=== PATIENT | male | born 1945 | race Caucasian/White ===

== ENCOUNTER 2019-12-16 09:32 | Observation (INO) | payer MEDICARE, OTHER, SELFPAY ==
[2019-12-16] VITALS (13 sets, daily range): BP systolic 118–187; BP diastolic 63–80; PULSE 64–87; RESP 15–18; TEMP 36.1–37.1; O2SAT 94–100; BMI 27.5; BMI 29.2; BMI 29.1
--- NOTE | 2019-12-16 09:35 | CT_ITS ---
We are attempting to reach an attending provider to discuss findings. An addendum with communication details will be sent when the communication is complete. STUDY: CT BRAIN WITHOUT CONTRAST REASON FOR EXAM: Male, 74 years old. STROKE RADIATION DOSAGE (If Supplied By Facility): CTDIvol = ( 44.99 ) mGy, DLP = ( 829.85 ) mGycm TECHNIQUE: Transaxial CT imaging of the brain was performed without administration of intravenous contrast material. Individualized dose optimization techniques were used for this CT. COMPARISON: No relevant priors. FINDINGS: Normal soft tissue structures. Normal calvarium. Normal size ventricles and extra-axial spaces for the patient''s age. There are areas of decreased attenuation within the white matter tracts of the supratentorial brain, consistent with microvascular disease changes. Normal basal ganglia and thalami. Normal brainstem. Normal cerebellum. There is no intracranial hemorrhage. There are no findings of an acute ischemic infarction. Normal visualized paranasal sinuses. CT/Brain/Head without Contrast IMPRESSION: Chronic involutional changes of the brain. Electronically Signed: Cheri Abbasi, at 9:51 EDT Tel , Service support ,
--- NOTE | 2019-12-16 09:35 | EKG12_ITS ---
Test Reason : Blood Pressure : / mmHG Vent. Rate : 074 BPM Atrial Rate : 074 BPM P-R Int : 196 ms QRS Dur : 118 ms QT Int : 418 ms P-R-T Axes : 058 -51 070 degrees QTc Int : 463 ms Sinus rhythm with marked sinus arrhythmia Left anterior fascicular block Left ventricular hypertrophy with QRS widening Nonspecific ST and T wave abnormality Abnormal ECG Confirmed by NAOMI RESENDIZ ([id number]), supervising editor trailer NAN POWELL ([id number]) on 12/21/2019 9:38:00 AM Referred By: KASSIE Confirmed By:NAOMI RESENDIZ
--- NOTE | 2019-12-16 09:36 | CT_ITS ---
We are attempting to reach an attending provider to discuss findings. An addendum with communication details will be sent when the communication is complete. STUDY: CTA HEAD AND NECK WITH CONTRAST REASON FOR EXAM: Male, 74 years old. CVA RADIATION DOSAGE (If Supplied By Facility): CTDIvol = ( 19.82 ) mGy, DLP = ( 765.25 ) mGycm TECHNIQUE: CT angiography was performed with a multi-detector CT scanner. Data acquisition was obtained from the skull base through the vertex following intravenous administration of IV [id number] 100ML. MIP images were reconstructed from the axial data set. Post-processing of the angiographic images was performed, with multiplanar reformation and 3D reconstruction. Individualized dose optimization techniques were used for this CT. COMPARISON: No relevant priors. FINDINGS: Normal bilateral petrous carotid arteries. Normal right cavernous carotid artery with a normal supraclinoid bifurcation. Normal left cavernous carotid artery with a normal supraclinoid bifurcation. Normal right A1 segments of the anterior cerebral artery. Normal left A1 segments of the anterior cerebral artery. Normal intact anterior communicating artery (ACOM). Normal bilateral A2 segments of the anterior cerebral arteries. Normal right M1 and M2 segments of the middle cerebral arteries, with a normal M1 bifurcation. Normal left M1 and M2 segments of the middle cerebral arteries, with a normal M1 bifurcation. There is non-visualization of the right posterior communicating artery (PCOM). There is non-visualization of the left posterior communicating artery (PCOM). Normal bilateral vertebral arteries. Normal basilar artery with a normal basilar bifurcation. The visualized bilateral superior cerebellar (SCA) arteries are normal. Normal bilateral P1, P2 and visualized P3 segments of the posterior cerebral arteries. There is no demonstrated aneurysm of the [place] of [place]. There is no demonstrated abnormality of the visualized brain. AORTIC ARCH: Normal visualized aortic arch. Normal origins of the brachiocephalic, left common carotid, and left subclavian arteries. RIGHT CAROTID ARTERIES: Normal right common carotid artery (CCA). There is mild atherosclerotic plaque formation with minimal narrowing of the right carotid bulb. Normal origin of the right internal carotid (ICA) artery without a hemodynamically significant stenosis. Normal visualized cervical portion of the right internal carotid artery. Normal origin of the right external carotid artery (ECA). LEFT CAROTID ARTERIES: Normal left common carotid artery (CCA). There is mild atherosclerotic plaque formation with minimal narrowing of the left carotid bulb. Normal origin of the left internal carotid (ICA) artery without a hemodynamically significant stenosis. Normal visualized cervical portion of the left internal carotid artery. Normal origin of the left external carotid artery (ECA). VERTEBRAL ARTERIES: Normal bilateral vertebral arteries. CT/CTA Head AND Neck W/ Contrast IMPRESSION: No significant stenosis of the cervical arteries. There is no intracranial large vessel occlusion. Electronically Signed: Cheri Abbasi, at 10:19 EDT Tel , Service support ,
[2019-12-16 10:11] LABS: Absolute Lymphocyte Count 0.67 X10^3/uL (0.83-4.51); Absolute Neutrophil Count 3.5 X10^3/uL (2.0-7.7); Basophil# 0.03 X10^3/uL; Basophil% 0.6 % (0-1); Eosinophil# 0.17 X10^3/uL; Eosinophils% 3.5 % (0-5); Hematocrit 43.8 % (40-54); Hemoglobin 14.7 g/dL (13.0-16.5); Lymphocyte # 0.67 X10^3/ul (4.0); Lymphocyte % 13.9 % (19-41); Mean Corp Hgb Conc 33.6 g/dL (32-36); Mean Corpuscular Hgb 31.1 pg (27.0-32.0); Mean Corpuscular Volume 92.8 fL (80-94); Mean Platelet Vol. 11.1 fl (6.2-12.0); Monocyte# 0.39 X10^3/uL; Monocyte% 8.1 % (0-10); NRBC Flagged by Analyzer 0 % (0-5); Neutrophil # 3.53 X10^3/uL (2.7-7.7); Neutrophil % 73.5 % (47-70); Platelet Count 137 K/mm3 (150-450); RBC Distribution Width CV 13.2 % (11.6-14.6); RBC Distribution Width SD 44.9 fl (35.1-43.9); Red Blood Count 4.72 M/mm3 (4.6-6.2); White Blood Count 4.8 K/mm3 (4.4-11.0)
--- NOTE | 2019-12-16 10:11 | NURSING ---
FACESHEET FAXED TO [facility]
[2019-12-16] MEDS: Aspirin 81 MG TAB.CHEW 324 MG PO (10:16)
[2019-12-16 10:22] LABS: Prothrombin Time (Protime)PT. 13.1 SECONDS (11.7-14.9)
[2019-12-16 10:23] LABS: Partial Thromboplast Time 23.5 Seconds (24.1-36.2)
--- NOTE | 2019-12-16 10:26 | NURSING ---
DR HADLEY FOR DR FERNANDO
--- NOTE | 2019-12-16 10:33 | ED.VISSUMM ---
- ER Visit Summary Date of Service: 12/16/19 Chief Complaint: Stroke History of Present Illness: The patient is a 74 M who presents with stroke symptoms that began this morning when he woke up. Patient last known well was 8 PM last night. This was approximately 13-1/2 hours prior to arrival. Patient states he went to bed and was feeling normal last night. Patient states he woke up in the middle the night and was not feeling right. Patient woke up this morning and was having trouble talking and said his right side was weak. Patient states he was having trouble standing. Patient denies any chest pain or shortness of breath. Patient denies any nausea or vomiting. Patient denies any headaches. Patient denies any visual changes. Physical Examination: Vital signs are stable. Patient is afebrile. Patient is in no acute distress. Cranial nerves II through XII are intact. Strength is 5/5 bilateral in the upper and lower extremities. There are no sensory deficits noted. Dohl-jx-uocj is intact. Lgouwq-ct-pepf is intact. Patient currently has an NIH score of 0. Oral mucosa is pink and moist. Neck is supple. Trachea is midline. There is no JVD or lymphadenopathy. Heart was regular rate and rhythm. Lungs are clear and equal bilaterally. Abdomen is soft. Bowel sounds are normal. There is no tenderness. Extremities are intact. There is no calf tenderness or edema. Test Results: EKG shows a normal sinus rhythm with a rate of 74. There is a left anterior fascicular block and left ventricular hypertrophy. There are nonspecific ST-T wave changes. CT scan of the brain was obtained. There is no acute intracranial abnormality. CTA of the brain was obtained. There is no large vessel occlusion. These were interpreted by the radiologist and reviewed by myself. CBC was within normal limits. Emergency Department Course and Treatment: Case was discussed with the stroke neurologist at [facility]. Given that his symptoms are improving and there is no significant deficit, he does not recommend TPA at this time. He recommended administering aspirin and admit to the hospital for further work-up. Case was discussed with the hospitalist. He will admit the patient to PCU. Patient understands and is agreeable with the plan. All questions were answered. Disposition: Admit to hospital Impression: 1. TIA This note was generated with Dimeresation software. It may contain incorrect words, spelling, and punctuation that were not noted in review of the chart prior to signing ED Disposition - Plan for ED Patient: Disposition: Acute Care Hospital [facility] Diagnosis: TIA (transient ischemic attack) Referrals: Kyle Jaquez III, MD [Primary Care Provider] -
--- NOTE | 2019-12-16 10:36 | NURSING ---
PCU TIA KOTSONIS
[2019-12-16 10:37] LABS: Anion Gap 6 (5-15); BUN 21 mg/dL (7-18); Calcium,Total 8.6 mg/dL (8.5-10.1); Chloride 106 mmol/L (98-107); Creatinine, Serum 0.91 mg/dL (0.70-1.30); EST Glomerular Filtration Rate 86 mL/min (>60); Est Glom Filt Rate - Afr Amer 104 mL/min (>60); Estimated Creatinine Clearance 66.81 ml/min; Glucose 103 mg/dL (74-106); Sodium Level 138 mmol/L (136-145)
--- NOTE | 2019-12-16 11:02 | RAD_ITS ---
STUDY: X-RAY CHEST REASON FOR EXAM: Male, 74 years old. stroke TECHNIQUE: Single AP portable view of the chest. COMPARISON: None. FINDINGS: The lungs are clear and expanded. There is no demonstrated pleural abnormality. Sternal cerclage wires are present from a prior sternotomy. Normal mediastinum and marge. Normal visualized pulmonary arteries. Normal visualized aortic arch and descending thoracic aorta. Normal visualized thoracic spine. There is degenerative osteoarthritis of the bilateral shoulders. There is no demonstrated abnormality of the visualized soft tissue structures of the upper abdomen. RAD/Chest 1 View IMPRESSION: Degenerative changes, as described above. No demonstrated acute cardiopulmonary process. Electronically Signed: Cheri Abbasi, at 11:35 EDT Tel , Service support ,
--- NOTE | 2019-12-16 11:13 | ECHOD_ITS ---
Reason For Study: TIA/CVA Procedure This was a 2D Doppler, Color Flow transthoracic echocardiogram. Exam performed portable in patient room. Left Ventricle Normal size and thickness. The estimated ejection fraction is 65 %. Stage 1 diastolic dysfunction. No regional wall motion abnormalities noted. Right Ventricle Mildly dilated right ventricle. Normal systolic function. Atria Normal left atrium. Normal right atrium. Normal atrial septum. Bubble contrast study negative for right to left interatrial shunt. Mitral Valve The mitral valve is structurally normal. No prolapse or stenosis seen. Trivial mitral valve insufficiency. Tricuspid Valve Normal tricuspid valve. Trivial tricuspid valve insufficiency. Right ventricular systolic pressure estimated to be 29 mmHg. Aortic Valve Trisinus/trileaflet aortic valve. Mild diffuse aortic valve thickening. Trivial aortic valve insufficiency. Pulmonic Valve Normal pulmonic valve. Trivial pulmonic valve insufficiency. Great Vessels Normal aortic root. Normal arch. Normal inferior vena cava. Inferior vena cava collapse with sniff. Pericardium/Pleural No pericardial effusion. Medication Performed a rapid injection of agitated mix of 9 cc saline and 1cc air to assess for atrial septal defect. MMode/2D Measurements & Calculations LVIDd: 4.9 cm IVSd: 1.1 cm Ao root diam: 3.2 cm LVIDs: 2.8 cm LVPWd: 1.2 cm RVDd: 4.1 cm FS: 42.7 % LAV(MOD-bp): 45.9 ml LVAd ap4: 25.9 cm2 SV(MOD-sp4): 49.4 ml LAV(MOD-bp) Indexed: 23.8 ml/m2 EDV(MOD-sp4): 73.4 ml LAV(MOD-sp2): 35.6 ml EDV(sp4-el): 72.3 ml LAV(MOD-sp4): 53.9 ml LVAs ap4: 13.3 cm2 ESV(MOD-sp4): 24.0 ml ESV(sp4-el): 23.5 ml EF(MOD-sp4): 67.3 % EF(sp4-el): 67.4 % SV(sp4-el): 48.7 ml LA A4 area: 19.4 cm2 LA dimension(2D): 4.8 cm RA A4 area: 20.0 cm2 Doppler Measurements & Calculations MV E max marcus: 77.8 cm/sec Lat Peak E' Marcus: 10.3 cm/sec Med Peak E' Marcus: 6.3 cm/sec MV A max marcus: 86.5 cm/sec E/E' lat: 7.5 E/E' med: 12.4 MV E/A: 0.90 Ao V2 max: 198.8 cm/sec LV V1 max: 125.9 cm/sec PA V2 max: 122.2 cm/sec Ao max P.8 mmHg LV V1 max P.3 mmHg Ao V2 mean: 143.1 cm/sec Ao mean P.0 mmHg Ao V2 VTI: 39.3 cm TR max marcus: 245.3 cm/sec TR max P.1 mmHg Interpretation Summary The estimated ejection fraction is 65 %. Stage 1 diastolic dysfunction. Mildly dilated right ventricle. Bubble contrast study negative for right to left interatrial shunt. Trivial mitral valve insufficiency. Trivial tricuspid valve insufficiency. Right ventricular systolic pressure estimated to be 29 mmHg. Trivial aortic valve insufficiency. There is no comparison study available. Ordering Physician: Marck Chaidez Referring Physician: Kyle Jaquez Performed By: Tatiana Trimble, JESSICA, RVT
--- NOTE | 2019-12-16 11:28 | HP.PCM_ITS ---
History of Present Illness Date of Admission: 12/16/19 Chief Complaint: CVA The patient is a 74 year old M [facility] as below who presents from home with not. He states that he did wake up in the middle the night not feeling well but then went to sleep he was normal last night at around 8 PM. He denies any lighthe adedness or dizziness. No chest pain or shortness. At this time all symptoms have resolved and NIH in the ER was 0. The case was discussed with [facility] neurology who did not feel it necessary for a TPA, and has had recommended a CTA of the head and neck as well as aspirin. The patient is on aspirin daily. Unfortunately he is unable to tolerate statin secondary to severe myalgias. Past Medical History Past Medical History (Chronic Problems): Chronic Problems HLD (hyperlipidemia) (Chronic) Allergies Lszgvea-Wpl-Bsv Reductase Inhibitor Allergy (Verified 12/16/19 09:49) Other KRIS Inhibitors Adverse Reaction (Verified 12/16/19 09:49) Other alfuzosin HCl [From Uroxatral] Adverse Reaction (Verified 12/16/19 09:49) Low blood pressure Home Medications: Ambulatory Orders Medication Instructions Recorded Aspirin 81 mg PO DAILY 07/15/15 Clonazepam [Klonopin] 1 mg PO QHS 07/15/15 Folic Acid 1 mg PO DAILY@0800 07/15/15 Naproxen [Naprosyn] 250 mg PO BID 07/15/15 [place]-3 Acid Ethyl Esters [Lovaza] 1 gm PO BID 07/15/15 Tadalafil [Cialis] 5 mg PO DAILY 07/15/15 Vitamin D3 5,000 units PO DAILY 07/15/15 Allopurinol 300 mg PO DAILY 12/16/19 Hydrochlorothiazide 12.5 mg PO DAILY 12/16/19 Losartan Potassium [Cozaar] 50 mg PO DAILY 12/16/19 Metoprolol Succinate 100 mg PO BID 12/16/19 Surgical History: appendectomy, - - sinus surgery Smoking Status: Former smoker Tobacco Use: Cigarettes Alcohol: None Drugs: None - *Family History Sibling History Items: - - multiple sibling with stents and bypass surgery, one brother with diabetes Maternal History Items: - - cabg, mother is still alive at age 95 Paternal History Items: - - cabg Review of Systems Constitutional: Denies: Chills, Fever, Weight Change HEENT: Denies: Head Aches, Sinus Congestion, Sinus Drainage Cardiovascular: Denies: Chest Pain, Palpitations Respiratory: Denies: Cough, Shortness of breath at rest, Sputum production Gastrointestinal: Denies: Abdominal Pain, Nausea, Vomiting Genitourinary: Denies: Dysuria Musculoskeletal: Denies: Joint Pain, Joint Tenderness Skin: Denies: Rash, Wounds Neurological: Reports: Slurred speech, Focal weakness. Denies: Numbness, Tingling Psychiatric: Denies: Anxiety, Depression, Homicidal Ideations, Suicidal Ideations Hematologic/ Lymphatic: Denies: Easy Bruising, Easy Bleeding VTE Information - Inpt Only VTE Present on Admission: No Patient Problems: Active and Suspected Problems TIA (transient ischemic attack) (Acute) - Physical Exam Vitals/I&O's: Vital Signs Temp Pulse Resp BP Pulse Ox 97 F L 64 18 187/68 H 99 12/16/19 10:30 12/16/19 10:30 12/16/19 10:30 12/16/19 10:30 12/16/19 10:30 Oxygen Flow Rate (L/min) 2 Oxygen Delivery Method Nasal Cannula Weight: 175 lb 4.8 oz Body Mass Index (BMI) 29.1 Finger Stick Blood Glucose 103 General: Alert, Oriented x3, Cooperative, No apparent distress HEENT: Atraumatic, PERRLA, EOMI, Normocephalic Oral: Moist Mucosa Neck: Supple, No JVD Lungs: Clear to auscultation, Normal air movement, No rhonchi, No wheeze, No rales, Diminished Cardiovascular: Regular rate, Regular Rhythm, Normal S1, Normal S2, No murmurs Abdomen: Soft, Non Tender, Non-Distended, No Hepato-splenomegaly Extremities: No edema, Capillary Refill Less than 3 Seconds Skin: No rashes, No breakdown Neurological: Cranial nerves II-XII grossly intact, Neuro grossly intact, Motor Exam 5/5 strength throughout, Sensory exam intact to light touch and pain Psych/Mental Status: Normal Affect, Appropriate Laboratory Results 12/16/19 10:01: WBC 4.8, RBC 4.72, Hgb 14.7, Hct 43.8, MCV 92.8, MCH 31.1, MCHC 33.6, RDW Std Deviation 44.9 H, RDW Coeff of Nicky 13.2, Plt Count 137 L, MPV 11 .1, Immature Gran % (Auto) 0.400, Neut % (Auto) 73.5 H, Lymph % (Auto) 13.9 L, [place] % (Auto) 8.1, Eos % (Auto) 3.5, Baso % (Auto) 0.6, Absolute Neuts (auto) 3.5, Absolute Lymphs (auto) 0.67 L, Nucleated RBC % 0 12/16/19 10:01: PT 13.1, INR 1.0, APTT 23.5 L 12/16/19 10:01: Sodium 138, Potassium 4.0, Chloride 106, Carbon Dioxide 26.0, Anion Gap 6, BUN 21 H, Creatinine 0.91, Estim Creat Clear Calc 66.81, Est GFR (MDRD) Af Amer 104, Est GFR (MDRD) Non-Af 86, BUN/Creatinine Ratio 23.0 H, Glucose 103, Calcium 8.6, Troponin I < 0.015 Current Medications Acetaminophen (Tylenol) 650 mg PO Q6H PRN PRN PRN Reason: Pain Score 1-10/Temp > 100.7 F Clopidogrel Bisulfate (Plavix) 75 mg PO DAILY [place] Hydralazine HCl (Apresoline Iv) 5 mg IV Q30M PRN PRN Reason: to maintain BP goals Sodium Chloride () 500 mls @ 15 mls/hr IV PRN PRN PRN Reason: Blood Transfusion Sodium Chloride () 250 mls @ 15 mls/hr IV .[id number] PRN PRN Reason: Saline Flush Sodium Chloride () 250 mls @ 15 mls/hr IV .[id number] PRN PRN Reason: Additional IVPB Infusion Labetalol HCl (Trandate) 10 - 20 mg IV Q10M PRN PRN PRN Reason: to Maintain BP Goals Melatonin (Melatonin) 3 mg PO QHS PRN PRN PRN Reason: INSOMNIA Sodium Chloride () 10 - 40 ml IV UD PRN PRN Reason: SALINE FLUSH Assessment/Plan All Active Problems TIA (transient ischemic attack) (Acute) Chest pain (Acute) Myocardial infarction (Acute) 1. CVA versus TIA -CT of the head and neck was unremarkable, and CT of the brain was normal -We will obtain an MRI and an echo -Continue with aspirin we will add Plavix -Unable to tolerate a statin secondary to myalgias 2. HTN/HLD/ALEXIA -He is allergic to statins therefore cannot be on any -Continue with his Lovaza -We will hold his blood pressure medications and allow permissive hypertension for 24 hours -He wears CPAP at night, will continue 3. Anxiety -Stable -Continue with Klonopin DVT: Ambulation OBSV E&M: [id number] Initial observation care L3
--- NOTE | 2019-12-16 17:00 | NURSING ---
This RN updated the pt's daughter in law, Yoselin via phone.
[2019-12-16 18:11] LABS: Bacteria 0 SEEN /hpf (None Seen); Mucous, Urine 0 SEEN /hpf (<or=2+); Red Blood Cells-Urine 0 SEEN /hpf (0-5); Squamous Epithelial Cells - UA 0 SEEN /hpf (0-5); White Blood Cells 0 SEEN /hpf (0-5)
[2019-12-16 18:24] LABS: Color, Urine Yellow (Yellow); Glucose, Dipstick Normal (Normal); Ketone-Dipstick 15 mg/dl (Negative); Leukocyte Esterase-Dipstick Negative /ul (Negative); Nitrite-Dipstick Negative (Negative); Occult Blood-Urine Negative /ul (Negative); Protein-Dipstick Negative (Negative); Specific Gravity, Urine 1.015 (1.002-1.030); Urine Bilirubin Dipstick Negative (Negative); Urine Clarity Clear (Clear); Urine Urobilinogen Normal (Normal)
[2019-12-17] VITALS (10 sets, daily range): BP systolic 123–150; BP diastolic 76–92; PULSE 68–84; RESP 16–18; TEMP 36.6–37.2; O2SAT 94–96; BMI 29.1
--- NOTE | 2019-12-17 05:55 | CT_ITS ---
STUDY: CT BRAIN WITHOUT CONTRAST REASON FOR EXAM: Male, 74 years old. Follow-up CVA. Patient unable to have MRI. RADIATION DOSAGE (If Supplied By Facility): CTDIvol = ( 44.99 ) mGy, DLP = ( 812.98 ) mGycm TECHNIQUE: Transaxial CT imaging of the brain was performed without administration of intravenous contrast material. Individualized dose optimization techniques were used for this CT. COMPARISON: December 16, 2019. FINDINGS: Normal soft tissue structures. Normal calvarium. Normal size ventricles and extra-axial spaces for the patient''s age. Normal white matter tracts of the cerebral hemispheres. Normal basal ganglia and thalami. Normal brainstem. Normal cerebellum. There is no intracranial hemorrhage. There are no findings of an acute ischemic infarction. Moderate ethmoid, maxillary and right sphenoid sinus mucosal thickening. Mastoid air cells are well aerated. CT/Brain/Head without Contrast IMPRESSION: No acute intracranial abnormality. Significant paranasal sinus mucosal thickening worse since the prior study. Electronically Signed: Ravi Bangura MD at 6:42 EDT , Service support ,
[2019-12-17 06:50] LABS: Absolute Lymphocyte Count 0.89 X10^3/uL (0.83-4.51); Absolute Neutrophil Count 3.9 X10^3/uL (2.0-7.7); Basophil# 0.06 X10^3/uL; Eosinophil# 0.43 X10^3/uL; Eosinophils% 7.4 % (0-5); Hematocrit 45.3 % (40-54); Hemoglobin 15.1 g/dL (13.0-16.5); Lymphocyte # 0.89 X10^3/ul (4.0); Lymphocyte % 15.2 % (19-41); Mean Corp Hgb Conc 33.3 g/dL (32-36); Mean Corpuscular Hgb 30.9 pg (27.0-32.0); Mean Corpuscular Volume 92.6 fL (80-94); Mean Platelet Vol. 11.2 fl (6.2-12.0); Monocyte% 8.6 % (0-10); NRBC Flagged by Analyzer 0 % (0-5); Neutrophil # 3.94 X10^3/uL (2.7-7.7); Neutrophil % 67.5 % (47-70); Platelet Count 147 K/mm3 (150-450); RBC Distribution Width CV 13.2 % (11.6-14.6); RBC Distribution Width SD 45.1 fl (35.1-43.9); Red Blood Count 4.89 M/mm3 (4.6-6.2); White Blood Count 5.8 K/mm3 (4.4-11.0)
[2019-12-17 07:05] LABS: BUN 20 mg/dL (7-18); Creatinine, Serum 0.85 mg/dL (0.70-1.30); EST Glomerular Filtration Rate 93 mL/min (>60); Estimated Creatinine Clearance 64.31 ml/min; Glucose 99 mg/dL (74-106)
[2019-12-17 07:06] LABS: Anion Gap 7 (5-15); BUN/Creat Ratio 23.6 RATIO (10-20); Calcium,Total 8.8 mg/dL (8.5-10.1); Chloride 111 mmol/L (98-107); Cholesterol 291 mg/dL (200); Est Glom Filt Rate - Afr Amer 113 mL/min (>60); High Density Lipoprotein 38 mg/dL; Potassium 3.3 mmol/L (3.5-5.1); Sodium Level 143 mmol/L (136-145); Triglycerides 179 mg/dL; Very Low Density Lipoprotein 36 mg/dL (5-40)
[2019-12-17] MEDS: Clopidogrel Bisulfate 75 MG Tablet PO (09:02)
[2019-12-17] MEDS: 0.9% Saline Lock 10 ML Syringe IV (09:13)
--- NOTE | 2019-12-17 09:35 | TELEMED_ITS ---
[facility] Telemed has confirmed receipt of a request for visit. This document confirms receipt of the order initiating the consult. To find the results of the consultation, please view the patient's reports for the scanned Telemed Consult.
--- NOTE | 2019-12-17 10:28 | CT_ITS ---
STUDY: CT CERVICAL SPINE WITHOUT CONTRAST REASON FOR EXAM: Male, 74 years old. ABN GAIT,FINE MOTOR DEFICIENCY RADIATION DOSAGE (If Supplied By Facility): CTDIvol = ( 26.61 ) mGy, DLP = ( 520.02 ) mGycm TECHNIQUE: High resolution transaxial imaging was performed without contrast material. Sagittal and coronal images were reconstructed. Individualized dose optimization techniques were used for this CT. COMPARISON: None FINDINGS: Normal craniovertebral junction. There are degenerative changes of the anterior atlantoaxial articulation. Normal odontoid process. Normal cervical lordosis. Normal vertebral bodies and posterior osseous elements. C2-3: Normal endplates. Normal disc height and morphology. Normal central canal and intervertebral neuroforamina. C3-4: 2 mm spondylolisthesis. Degenerative changes of the bilateral facet joints and uncovertebral joints. Fkje-ib-bsmctozc narrowing of the central canal and the bilateral intervertebral neural foramina. C4-5: Endplate spondylosis. Central and paracentral disc bulge. Degenerative changes of the bilateral facet joints and uncovertebral joints. Mild to moderate narrowing of the central canal and the bilateral intervertebral neural foramina. C5-6: Endplate spondylosis. Central and paracentral disc bulge. Degenerative changes of the bilateral facet joints and uncovertebral joints. Vufe-dm-tntjaylg narrowing of the central canal and the bilateral intervertebral neural foramina. C6-7: Endplate spondylosis. Central and paracentral disc bulge. Degenerative changes of the bilateral facet joints and uncovertebral joints. Mild to moderate narrowing of the central canal and the bilateral intervertebral neural foramina. C7-T1: Endplate spondylosis. Central and paracentral disc bulge. Degenerative changes of the bilateral facet joints and uncovertebral joints. Cunz-ku-cazjsaet narrowing of the central canal and the bilateral intervertebral neural foramina. Normal visualized soft tissue structures. CT/Spine Cervical without Contras IMPRESSION: Multilevel degenerative changes, as described above. Electronically Signed: Cheri Abbasi, at 11:56 EDT Tel , Service support ,
--- NOTE | 2019-12-17 12:27 | CASEMGMT ---
Social Work Met with patient to discuss RU referral. Explained RU - 3hrs of therapy, 2 day in room isolation, 4-8 pm one designated visitor after isolation and Medicare coverage. Pt agreed for referral to RU. Referral made to RU. RU accepted. SW to continue to follow for DC date. PHQ-9 completed per dx. DANIELA SalinasW
--- NOTE | 2019-12-17 13:02 | DCINST_ITS ---
- Discharge Diagnoses Current Active Problems: Current Active and Chronic Problems TIA (transient ischemic attack) (Acute) You will use the following diet at home:: Cardiac Your food should be the consistency of: Regular Your liquids should be the consistency of: Regular/Thin Discharge Activity: Return to Normal Activity Call your doctor if you observe: Fever of 101 or Higher, Shortness of breath, Dizziness, Fainting spells, Swelling in the ankles, Chest pain, Increased palpitations (irregular heartbeat) Allergies/Adverse Reactions: Allergies Sbqbnth-Tha-Dil Reductase Inhibitor Allergy (Verified 12/16/19 09:49) Other KRIS Inhibitors Adverse Reaction (Verified 12/16/19 09:49) Other alfuzosin HCl [From Uroxatral] Adverse Reaction (Verified 12/16/19 09:49) Low blood pressure Medications to take at Discharge Aspirin 81 mg PO DAILY 07/15/15 Clonazepam [Klonopin] 1 mg PO QHS 07/15/15 Folic Acid 1 mg PO DAILY@0800 07/15/15 Naproxen [Naprosyn] 250 mg PO BID 07/15/15 [place]-3 Acid Ethyl Esters [Lovaza] 1 gm PO BID 07/15/15 Tadalafil [Cialis] 5 mg PO DAILY 07/15/15 Vitamin D3 5,000 units PO DAILY 07/15/15 Allopurinol 300 mg PO DAILY 12/16/19 Hydrochlorothiazide 12.5 mg PO DAILY 12/16/19 Losartan Potassium [Cozaar] 50 mg PO DAILY 12/16/19 Metoprolol Succinate 100 mg PO BID 12/16/19 Clopidogrel Bisulfate [Plavix] 75 mg PO DAILY tablet 12/17/19 Primary Care Physician: Kyle Jaquez III, MD [Primary Care Provider] - Please follow up with your Primary Care Physician in: 3-5 days Test Results: Test results from this visit will be discussed in further detail at your follow- up appointment, if applicable.
--- NOTE | 2019-12-17 13:40 | PCM.DC.SUM ---
Discharge Date and Diagnosis - Problem List Patient Problems: Active and Suspected Problems TIA (transient ischemic attack) (Acute) Date of Admission: 12/16/19 Date of Discharge: 12/17/19 - Primary Discharge Diagnosis Acute Problems: Active Problems TIA (transient ischemic attack) (Acute) - Secondary Discharge Diagnosis Chronic Problems: Chronic Problems HLD (hyperlipidemia) (Chronic) Hospital Course and Treatment Imaging Results: Clinical Impression(s) from Imaging Studies Brain CT 12/16/19 09:35 IMPRESSION: Chronic involutional changes of the brain. Electronically Signed: Cheri Abbasi, at 9:51 EDT Tel , Service support , ADDENDUM: 12/16/19 1019 IMPRESSION: Chronic involutional changes of the brain. N.B. : The above information has been verbally conveyed by Cheri Abbasi to Dwanye Milsl DO, on 12/16/2019 10:12:34 (ET). Electronically Signed: Cheri Abbasi, at 9:51 EDT Tel , Service support , ADDENDUM: 12/16/19 1025 IMPRESSION: Chronic involutional changes of the brain. N.B. : The above information has been verbally conveyed by Cheri Abbasi to Dwayne Mills DO, on 12/16/2019 10:19:00 (ET). Electronically Signed: Cheri Abbasi, at 9:51 EDT Tel , Service support , Head/Neck CTA 12/16/19 09:36 IMPRESSION: No significant stenosis of the cervical arteries. There is no intracranial large vessel occlusion. Electronically Signed: Cheri Abbasi at 10:19 EDT Tel , Service support , ADDENDUM: 12/16/19 1031 IMPRESSION: No significant stenosis of the cervical arteries. There is no intracranial large vessel occlusion. N.B. : The above information has been verbally conveyed by Cheri Abbasi to Dwayne Mills on 12/16/2019 10:24:52 (ET). Electronically Signed: Cheri Abbasi, at 10:19 EDT Tel , Service support , Chest X-Ray 12/16/19 11:02 IMPRESSION: Degenerative changes, as described above. No demonstrated acute cardiopulmonary process. Electronically Signed: Cheri Abbasi, at 11:35 EDT Tel , Service support , Brain CT 12/17/19 05:55 IMPRESSION: No acute intracranial abnormality. Significant paranasal sinus mucosal thickening worse since the prior study. Electronically Signed: Ravi Bangura MD at 6:42 EDT , Service support , Cervical Spine CT 12/17/19 10:28 IMPRESSION: Multilevel degenerative changes, as described above. Electronically Signed: Alonzoradha Abbasi, at 11:56 EDT Tel , Service support , Echo: Interpretation Summary The estimated ejection fraction is 65 %. Stage 1 diastolic dysfunction. Mildly dilated right ventricle. Bubble contrast study negative for right to left interatrial shunt. Trivial mitral valve insufficiency. Trivial tricuspid valve insufficiency. Right ventricular systolic pressure estimated to be 29 mmHg. Trivial aortic valve insufficiency. There is no comparison study available. Consults: Neurology Operations: None Procedures: 2-D Echocardiogram Summary of Care Provided: Per HPI: The patient is a 74 year old M PMH as below who presents from home with not. He states that he did wake up in the middle the night not feeling well but then went to sleep he was normal last night at around 8 PM. He denies any lightheadedness or dizziness. No chest pain or shortness. At this time all symptoms have resolved and NIH in the ER was 0. The case was discussed with [facility] neurology who did not feel it necessary for a TPA, and has had recommended a CTA of the head and neck as well as aspirin. The patient is on aspirin daily. Unfortunately he is unable to tolerate statin secondary to severe myalgias. Hospital Course 1. CVA versus CCD-89-toim-old male presents from home with right-sided weakness and dysarthria. He states that 8 PM the night before he felt fine and was normal however on the morning of admission he felt weak on his right side and had very slow and hesitant speech. Initial CT scan was unremarkable and he is unable to obtain an MRI secondary to a pacer wire he states. Therefore he had a repeat CT scan on the day of discharge with also no signs of ischemia. However he is still very weak and has a shuffling gait which she says is new. He does not have any type of resting tremor and leadpipe rigidity to indicate possible Parkinson's disease however he says that his handwriting has significantly worsened over the last decade to the point where he no longer write any checks. I attempted to discuss this with tele-neurology and they stated that there is not much that they could evaluate on there and therefore recommend an outpatient neurological evaluation since we do not have any in-house neurology for evaluation. His extremity reflexes did appear slightly hyperreflexic today and there is possible positive Babinski, therefore he will be transferred to rehab for further therapy and continued evaluation of his gait as well as other findings. He cannot tolerate a statin because of severe myalgias therefore he presented on aspirin and will be discharged on both aspirin and Plavix. I did discuss with him the plan for discharge and he expressed understanding of the risks and benefits of going to rehab today. 2. Hypertension, hyperlipidemia, ALEXIA, anxiety are all chronic medical conditions that complicate his care. His home medications were continued where appropriate Patient Problems: Active and Suspected Problems TIA (transient ischemic attack) (Acute) - Physical Exam Vitals/I&O's: Vital Signs Temp Pulse Resp BP Pulse Ox 98.4 F 84 18 150/89 H 96 12/17/19 09:05 12/17/19 11:00 12/17/19 09:05 12/17/19 09:05 12/17/19 12:26 Oxygen Flow Rate (L/min) 2 Oxygen Delivery Method Room Air Weight: 175 lb 4.8 oz Body Mass Index (BMI) 29.1 Finger Stick Blood Glucose 103 Intake and Output for Last 24 Hours 12/15/19 12/16/19 12/17/19 23:59 23:59 23:59 Intake Total 600 / 600 220 / 220 Output Total 350 / 350 250 / 250 Balance 250 / 250 -30 / -30 General: Alert, Oriented x3, Cooperative, No apparent distress HEENT: Atraumatic, PERRLA, EOMI, Normocephalic Oral: Moist Mucosa Neck: Supple, No JVD Lungs: Clear to auscultation, Normal air movement, No rhonchi, No wheeze, No rales Cardiovascular: Regular rate, Regular Rhythm, Normal S1, Normal S2 Abdomen: Soft, Non Tender, Non-Distended, No Hepato-splenomegaly Extremities: No edema, Capillary Refill Less than 3 Seconds Skin: No rashes, No breakdown Neurological: Cranial nerves II-XII grossly intact, Motor Exam 5/5 strength throughout, Unsteady Gait, Sensory exam intact to light touch and pain, - - Patellar reflexes 3+ bilateral lower extremities possible Babinski's however he kept holding his foot away during the test Psych/Mental Status: Normal Affect, Appropriate Laboratory Results 12/16/19 18:00: Urine Color Yellow, Urine Clarity Clear, Urine pH 6.0, Ur Specific [place] 1.015, Urine Protein Negative, Urine Glucose (UA) Normal, Urine Ketones 15 H, Urine Occult Blood Negative, Urine Nitrite Negative, Urine Bilirubin Negative, Urine Urobilinogen Normal, Ur Leukocyte Esterase Negative, Urine RBC 0 SEEN, Urine WBC 0 SEEN, Ur Squamous Epith Cells 0 SEEN, Urine Bacteria 0 SEEN, Urine Mucus 0 SEEN 12/17/19 06:35: WBC 5.8, RBC 4.89, Hgb 15.1, Hct 45.3, MCV 92.6, MCH 30.9, MCHC 33.3, RDW Std Deviation 45.1 H, RDW Coeff of Nicky 13.2, Plt Count 147 L, MPV 11.2, Immature Gran % (Auto) 0.300, Neut % (Auto) 67.5, Lymph % (Auto) 15.2 L, Isabella % (Auto) 8.6, Eos % (Auto) 7.4 H, Baso % (Auto) 1.0, Absolute Neuts (auto) 3.9, Absolute Lymphs (auto) 0.89, Nucleated RBC % 0 12/17/19 06:35: Sodium 143, Potassium 3.3 L, Chloride 111 H, Carbon Dioxide 25.0, Anion Gap 7, BUN 20 H, Creatinine 0.85, Estim Creat Clear Calc 64.31, Est GFR (MDRD) Af Amer 113, Est GFR (MDRD) Non-Af 93, BUN/Creatinine Ratio 23.6 H, Glucose 99, Calcium 8.8, Triglycerides 179, Cholesterol 291 H, LDL Cholesterol 217 H, VLDL Cholesterol 36, HDL Cholesterol 38 L Current Medications Acetaminophen (Tylenol) 650 mg PO Q6H PRN PRN PRN Reason: Pain Score 1-10/Temp > 100.7 F Clopidogrel Bisulfate (Plavix) 75 mg PO DAILY [facility] Last Admin: 12/17/19 09:02 Dose: 75 mg Documented by: Hydralazine HCl (Apresoline Iv) 5 mg IV Q30M PRN PRN Reason: to maintain BP goals Sodium Chloride () 500 mls @ 15 mls/hr IV PRN PRN PRN Reason: Blood Transfusion Sodium Chloride () 250 mls @ 15 mls/hr IV .[id number] PRN PRN Reason: Saline Flush Sodium Chloride () 250 mls @ 15 mls/hr IV .[id number] PRN PRN Reason: Additional IVPB Infusion Labetalol HCl (Trandate) 10 - 20 mg IV Q10M PRN PRN PRN Reason: to Maintain BP Goals Melatonin (Melatonin) 3 mg PO QHS PRN PRN PRN Reason: INSOMNIA Sodium Chloride () 10 - 40 ml IV UD PRN PRN Reason: SALINE FLUSH Last Admin: 12/17/19 09:13 Dose: 10 ml Documented by: Discharge Activity: Return to Normal Activity Call your doctor if you observe: Fever of 101 or Higher, Shortness of breath, Dizziness, Fainting spells, Swelling in the ankles, Chest pain, Increased palpitations (irregular heartbeat) Home Medications: Medications to take at Discharge Aspirin 81 mg PO DAILY 07/15/15 Clonazepam [Klonopin] 1 mg PO QHS 07/15/15 Folic Acid 1 mg PO DAILY@0800 07/15/15 Naproxen [Naprosyn] 250 mg PO BID 07/15/15 [place]-3 Acid Ethyl Esters [Lovaza] 1 gm PO BID 07/15/15 Tadalafil [Cialis] 5 mg PO DAILY 07/15/15 Vitamin D3 5,000 units PO DAILY 07/15/15 Allopurinol 300 mg PO DAILY 12/16/19 Hydrochlorothiazide 12.5 mg PO DAILY 12/16/19 Losartan Potassium [Cozaar] 50 mg PO DAILY 12/16/19 Metoprolol Succinate 100 mg PO BID 12/16/19 Clopidogrel Bisulfate [Plavix] 75 mg PO DAILY tab 12/17/19 Primary Care Physician: Kyle Jaquez III, MD [Primary Care Provider] - Please follow up with your Primary Care Physician in: 3-5 days Disposition: Inpt Rehab Unit/Facility Minutes spent on discharge:: 35 Patient Condition:: Stable Medical Necessity - Tobacco Use Smoking Status: Never smoker Tobacco Use: Cigarettes Meaningful Use Info Meaningful Use Diagnoses (Choose all that apply): None applicable OBSV E&M: 62570 Observation care discharge
--- NOTE | 2019-12-17 14:05 | CASEMGMT ---
Social Work present in room. Answered questions. Pt to transfer to on this date. aware. Nasima Fajardo, HEALTH AND SAFETY ADVISOR ANIMAL CONTROL LICENSING WORKER
--- NOTE | 2019-12-17 14:20 | PHA.DC.MR ---
Pharmacy Service has performed discharge medication reconciliation for this patient upon transfer to inpatient rehab. The patient's discharge medication list was reviewed for discrepancies and discrepancies were resolved. Home Medications Aspirin 81 mg PO DAILY 07/15/15 Clonazepam [Klonopin] 1 mg PO QHS 07/15/15 Folic Acid 1 mg PO DAILY@0800 07/15/15 Naproxen [Naprosyn] 250 mg PO BID 07/15/15 [place]-3 Acid Ethyl Esters [Lovaza] 1 gm PO BID 07/15/15 Tadalafil [Cialis] 5 mg PO DAILY 07/15/15 Vitamin D3 5,000 units PO DAILY 07/15/15 Allopurinol 300 mg PO DAILY 12/16/19 Hydrochlorothiazide 12.5 mg PO DAILY 12/16/19 Losartan Potassium [Cozaar] 50 mg PO DAILY 12/16/19 Metoprolol Succinate 100 mg PO BID 12/16/19 Clopidogrel Bisulfate [Plavix] 75 mg PO DAILY tab 12/17/19
--- NOTE | 2019-12-17 15:12 | NURSING ---
Telephone report given to Consuelo in inpatient rehab. Okay to send patient.
== END 2019-12-17 13:02 ==
LOC: ED 10:37 → PCU 10:43
PROVIDERS: Admitting Provider Family Medicine; Emergency Provider Emergency Medicine; PCP Family Medicine; Visit Provider Family Medicine
DX: G45.9 Transient cerebral ischemic attack, unspecified (principal); I44.4 Left anterior fascicular block; I08.3 Combined rheumatic disorders of mitral, aortic and tricuspid valves; R47.81 Slurred speech; R53.1 Weakness; R29.700 NIHSS score 0; E78.5 Hyperlipidemia, unspecified; I10 Essential (primary) hypertension; G47.33 Obstructive sleep apnea (adult) (pediatric); F41.9 Anxiety disorder, unspecified; Z79.899 Other long term (current) drug therapy; Z79.82 Long term (current) use of aspirin; Z87.891 Personal history of nicotine dependence
CPT/HCPCS: 36415; 70450; 70496; 70498; 71045; 72125; 80048; 80061; 81001; 84484; 85025; 85610; 85730; 92523; 92526; 92610; 93005; 93306; 94762; 97116; 97162; 97166; 97530; 99218; 99285; Q9957; Q9967; A4216; G0378

== ENCOUNTER 2019-12-17 15:30 | Inpatient (IN) | payer MEDICARE, OTHER, SELFPAY ==
[2019-12-17 09:23] VITALS: BMI 29.1
[2019-12-17 15:57] VITALS: BMI 28.8
[2019-12-17 16:16] VITALS: BP 158/87; PULSE 84; RESP 16; TEMP 36.6; O2SAT 97; BMI 28.9
[2019-12-17 17:03] VITALS: BP 142/85; BP 159/84; BP 159/91; PULSE 76; PULSE 79; PULSE 86
[2019-12-17 18:58] VITALS: BP 147/90; PULSE 78; RESP 16; TEMP 36.8; O2SAT 95
[2019-12-17 20:46] VITALS: O2SAT 95
[2019-12-17] MEDS: Omega-3 Acid Ethyl Esters 1 GM Capsule PO (21:17)
[2019-12-17] MEDS: clonazePAM 0.5 MG Tablet PO (21:17)
[2019-12-17 21:18] VITALS: PULSE 80
[2019-12-18 06:00] VITALS: BP 140/80; BP 143/88; BP 148/84; PULSE 73; PULSE 79
[2019-12-18 08:20] VITALS: BP 140/80; PULSE 74; RESP 18; TEMP 36.7; O2SAT 94
[2019-12-18] MEDS: Aspirin 81 MG TAB.CHEW PO (08:32)
[2019-12-18 08:33] VITALS: BP 140/80; PULSE 74
[2019-12-18] MEDS: Metoprolol(XL)Succ 100 MG Tablet PO (08:33)
[2019-12-18] MEDS: Losartan Potassium 50 MG Tablet PO (08:33)
[2019-12-18] MEDS: Clopidogrel Bisulfate 75 MG Tablet PO (08:33)
[2019-12-18] MEDS: hydroCHLOROthiazide 12.5mg 12.5 MG PO (08:33)
[2019-12-18] MEDS: Omega-3 Acid Ethyl Esters 1 GM Capsule PO ×2 (08:33→21:23)
[2019-12-18] MEDS: Allopurinol 300 MG Tablet PO (08:33)
[2019-12-18] MEDS: Folic Acid 1 MG Tablet PO (08:33)
[2019-12-18 09:29] VITALS: O2SAT 94
[2019-12-18 11:01] LABS: Vitamin D,25 Hydroxy 79.2 ng/mL
--- NOTE | 2019-12-18 13:18 | PCM.HP.STD ---
History of Present Illness Date of Admission: 12/18/19 Chief Complaint: debility The patient is a 74 year old M presents from [facility] for weakness. Patient states that this weakness was sudden but states that he has had issues in regards to being able to negotiate using his tractor to mow his lawn. Patient is also noted micrographia and just sloppier handwriting over the past several years. Patient states that he has been unable to tolerate statins in the past despite high cholesterol due to weakness. He feels that when he was able to stop the statins that his weakness did improve. The patient was hospitalized just recently and was evaluated with CAT scans of his head and neck that were unremarkable. He was seen by the neurology through a tele-visit and they recommended outpatient neurology evaluation for possible Parkinson's disease. [] Past Medical History Past Medical History (Chronic Problems): Chronic Problems (Last Updated 12/17/19 @ 16:27 by Michaelle Campbell) HLD (hyperlipidemia) (Chronic) Medical History: Medical History (Last Reviewed 12/18/19 @ 13:[address] Dwayne Zeng, DO) Anxiety F41.9 Depression F32.9 Hyperlipidemia E78.5 Sleep apnea G47.30 Hypertension I10 Allergies Maidhvl-Rgh-Nch Reductase Inhibitor Allergy (Verified 12/16/19 09:49) Other KRIS Inhibitors Adverse Reaction (Verified 12/16/19 09:49) Other alfuzosin HCl [From Uroxatral] Adverse Reaction (Verified 12/16/19 09:49) Low blood pressure Home Medications: Ambulatory Orders Medication Instructions Recorded Aspirin 81 mg PO DAILY 07/15/15 Clonazepam [Klonopin] 0.5 mg PO QHS 07/15/15 Folic Acid 1 mg PO DAILY@0800 07/15/15 Naproxen [Naprosyn] 250 mg PO BID 07/15/15 [place]-3 Acid Ethyl Esters [Lovaza] 1 gm PO BID 07/15/15 Tadalafil [Cialis] 5 mg PO DAILY 07/15/15 Vitamin D3 5,000 units PO DAILY 07/15/15 Allopurinol 300 mg PO DAILY 12/16/19 Hydrochlorothiazide 12.5 mg PO DAILY 12/16/19 Losartan Potassium [Cozaar] 50 mg PO DAILY 12/16/19 Metoprolol Succinate 100 mg PO BID 12/16/19 Clopidogrel Bisulfate [Plavix] 75 mg PO DAILY 12/17/19 Surgical History: appendectomy, - - sinus surgery Smoking Status: Never smoker Tobacco Use: Non-smoker - *Family History Sibling History Items: - - multiple sibling with stents and bypass surgery, one brother with diabetes Maternal History Items: - - cabg, mother is still alive at age 95 Paternal History Items: - - cabg Review of Systems Constitutional: Denies: Anorexia, Chills, Fever, Night Sweats Eyes: Denies: Blurred vision, Double vision HEENT: Denies: Head Aches, Sinus Congestion, Sinus Drainage Cardiovascular: Denies: Chest Pain, Palpitations Respiratory: Denies: Cough, Shortness of breath at rest, Sputum production Gastrointestinal: Denies: Abdominal Pain, Nausea, Vomiting Genitourinary: Denies: Dysuria Musculoskeletal: Denies: Joint Pain, Joint Tenderness Skin: Denies: Rash, Wounds Neurological: Reports: Balance problems, Change in Speech - Sometimes his voice will get weaker. States that it does not get weaker when he is more tired or if he is under duress. He jokingly states that he has trouble speaking when he sees an attractive nurse.. Denies: Slurred speech Psychiatric: Denies: Anxiety, Depression Hematologic/ Lymphatic: Denies: Easy Bruising, Easy Bleeding, Hx of blood clot Comment: All review of systems were negative except as mentioned above in the history of present illness and the other review of systems. VTE Information - Inpt Only VTE Present on Admission: No VTE Mechan Device Prophylaxis: None VTE Pharm Prophylaxis ordered?: No Reason prophylaxis not ordered:: Treatment Not Indicated - Physical Exam Vitals/I&O's: Vital Signs Temp Pulse Resp BP Pulse Ox 36.7 C 74 18 140/80 H 94 12/18/19 08:20 12/18/19 08:33 12/18/19 08:20 12/18/19 08:33 12/18/19 09:29 Oxygen Delivery Method Room Air Weight: 79.288 kg Body Mass Index (BMI) 28.8 Finger Stick Blood Glucose 103 Orthostatic Vital Signs Start: 12/17/19 17:03 Freq: 0600 Status: Active Protocol: Activity Type Activity Date Activity User E-Sign Co-Sign Detail Recorded Client Recorded Date Recorded By Document 12/18/19 06:00 AMS [id number] 12/18/19 06:12 AMS 08/21/20 06:00 Orthostatic Vitals Standing -Blood Pressure (90/60-120/80) 143/88 H -Extremity Use Left Arm -Pulse Rate (60-100) 79 Sitting -Blood Pressure (90/60-120/80) 148/84 H -Extremity Use Left Arm -Pulse Rate (60-100) 73 Lying -Blood Pressure (90/60-120/80) 140/80 H -Extremity Use Left Arm -Pulse Rate (60-100) 79 Intake and Output for Last 24 Hours 12/16/19 12/17/19 12/18/19 23:59 23:59 23:59 Intake Total 1260 / 1260 360 / 360 Output Total 150 / 150 Balance 1260 / 1260 210 / 210 General: Alert, Cooperative, No apparent distress, - - Up in bed. No acute distress. HEENT: Atraumatic, PERRLA, EOMI, Normocephalic, - - No nystagmus. Normal saccades. Oral: Moist Mucosa, No Gingival or Mucosal Lesions/ Ulcerations Neck: No Nodes, Thyroid Normal Size and Texture Lungs: Clear to auscultation, Normal air movement, No rhonchi, No wheeze Cardiovascular: Regular rate, Regular Rhythm, Normal S1, Normal S2 Abdomen: Bowel Sounds Present, Soft, Non Tender, Non-Distended, No Hepato-splenomegaly Extremities: No edema, No Calf Tenderness Skin: No rashes, No breakdown Musculoskeletal: No Tenderness to Palpation of Joints or Extremities, No Muscle Wasting Neurological: Deep Tendon Reflexes 2+/4 and Symmetrical, Sensory exam intact to light touch and pain Psych/Mental Status: Normal Affect, Appropriate Laboratory Results 12/18/19 05:35: Vitamin D 25-Hydroxy 79.2 Current Medications Acetaminophen (Tylenol) 650 mg PO Q6H PRN PRN PRN Reason: Pain Score 1-10/10 Allopurinol (Zyloprim) 300 mg PO DAILYCM [facility] Last Admin: 12/18/19 08:33 Dose: 300 mg Documented by: Aspirin (Aspirin, Baby) 81 mg PO DAILY@0800 [facility] Last Admin: 12/18/19 08:32 Dose: 81 mg Documented by: Bisacodyl (Dulcolax) 10 mg RECTAL .PRN X 1 PRN PRN Reason: Constipation Clonazepam (Klonopin) 1 mg PO QHS [facility] Clopidogrel Bisulfate (Plavix) 75 mg PO DAILY [facility] Last Admin: 12/18/19 08:33 Dose: 75 mg Documented by: Folic Acid (Folic Acid) 1 mg PO DAILY@0800 [facility] Last Admin: 12/18/19 08:33 Dose: 1 mg Documented by: Hydrochlorothiazide () 12.5 mg PO DAILY [facility] Last Admin: 12/18/19 08:33 Dose: 12.5 mg Documented by: Losartan Potassium (Cozaar) 50 mg PO DAILY [facility] Last Admin: 12/18/19 08:33 Dose: 50 mg Documented by: Magnesium Hydroxide (Milk Of Magnesia) 30 ml PO .PRN X 1 PRN PRN Reason: Constipation Metoprolol Succinate (Toprol Xl (Beta Dottie)) 100 mg PO DAILY [facility] Dxmuz-2-Gmxa Ethyl Esters (Lovaza) 1 gm PO BID [facility] Last Admin: 12/18/19 08:33 Dose: 1 gm Documented by: Senna/Docusate Sodium (Senokot-S, Yolanda-Colace) 2 tablet PO BID [facility] Last Admin: 12/18/19 08:35 Dose: Not Given Documented by: Tadalafil (Cialis) 5 mg PO DAILY [facility] Assessment/Plan All Active Problems (Last Updated 12/17/19 @ 16:27 by Michaelle Campbell) Myocardial infarction (Acute) Chest pain (Acute) TIA (transient ischemic attack) (Acute) 1. Debility Patient states that he suddenly was just weak. Patient underwent a stroke work-up that was unremarkable. But upon further conversation it seemed that this weakness is more of a chronic indolent process. Patient to engage with physical and Occupational Therapy with exercises and eventual transition back to home if feasible. The neurologist who did a tele-visit felt that he should see a physical neurologist in regards to possible Parkinson's disease. Patient has no pill-rolling tremor that I can identify and really does not have the classic masked face ease but did recommend that the patient to follow-up with a movement disorder specialist to see if he does have Parkinson's or Parkinson's plus or some other type process. 2. Hyperlipidemia: No statins as it causes him to be weak and also causes epistaxis. 3. Hypertension: Stable continue with losartan and HCTZ. Inpatient E&M: 55583 Init Hosp L2
[2019-12-18 19:42] VITALS: BP 138/73; PULSE 67; RESP 16; TEMP 36.6; O2SAT 94
[2019-12-18] MEDS: clonazePAM 0.5 MG Tablet 1 MG PO (21:23)
[2019-12-19] MEDS: Losartan Potassium 50 MG Tablet PO (07:47)
[2019-12-19] MEDS: Clopidogrel Bisulfate 75 MG Tablet PO (07:47)
[2019-12-19] MEDS: Aspirin 81 MG TAB.CHEW PO (07:47)
[2019-12-19] MEDS: Allopurinol 300 MG Tablet PO (07:48)
[2019-12-19] MEDS: hydroCHLOROthiazide 12.5mg 12.5 MG PO (07:48)
[2019-12-19] MEDS: Folic Acid 1 MG Tablet PO (07:48)
[2019-12-19] MEDS: Omega-3 Acid Ethyl Esters 1 GM Capsule PO ×2 (07:48→20:52)
[2019-12-19 07:49] VITALS: PULSE 70
[2019-12-19] MEDS: Metoprolol(XL)Succ 100 MG Tablet PO (07:49)
[2019-12-19 08:37] VITALS: O2SAT 94
[2019-12-19 09:30] VITALS: BP 132/80; PULSE 60; RESP 18; TEMP 36.4; O2SAT 95
--- NOTE | 2019-12-19 14:19 | NURSING ---
Pt ambulated through hallways x1 assist with w/w x2 laps, tolerated well.
--- NOTE | 2019-12-19 18:29 | NURSING ---
Pt ambulated hallways x1 assist with w/w x2 laps, tolerated well.
[2019-12-19 20:39] VITALS: BP 144/76; PULSE 63; RESP 16; TEMP 36.8; O2SAT 97
[2019-12-19] MEDS: TADALAFIL 5 MG TABLET PO (20:51)
[2019-12-19] MEDS: clonazePAM 0.5 MG Tablet 1 MG PO (20:51)
[2019-12-20 07:51] VITALS: PULSE 77
[2019-12-20] MEDS: Clopidogrel Bisulfate 75 MG Tablet PO (07:51)
[2019-12-20] MEDS: Folic Acid 1 MG Tablet PO (07:51)
[2019-12-20] MEDS: hydroCHLOROthiazide 12.5mg 12.5 MG PO (07:51)
[2019-12-20] MEDS: Losartan Potassium 50 MG Tablet PO (07:51)
[2019-12-20] MEDS: Allopurinol 300 MG Tablet PO (07:51)
[2019-12-20] MEDS: Metoprolol(XL)Succ 100 MG Tablet PO (07:51)
[2019-12-20] MEDS: Omega-3 Acid Ethyl Esters 1 GM Capsule PO ×2 (07:51→21:41)
[2019-12-20] MEDS: Aspirin 81 MG TAB.CHEW PO (07:51)
[2019-12-20 10:00] VITALS: BP 128/70; PULSE 58; RESP 16; TEMP 36.3; O2SAT 93
--- NOTE | 2019-12-20 10:22 | PN_ITS ---
Reason for Visit: generalized debility Subjective: Still with weakness. Concerned about weakness. Spoke at length about naprosyn, saying he had a problem with it, but only to find out that he has tolerated it. Vitals/I&O's: Vital Signs Temp Pulse Resp BP Pulse Ox 36.8 C 77 16 144/76 H 97 12/19/19 20:39 12/20/19 07:51 12/19/19 20:39 12/19/19 20:39 12/19/19 20:39 Oxygen Delivery Method Room Air Weight: 79.288 kg Body Mass Index (BMI) 28.8 Finger Stick Blood Glucose 103 Orthostatic Vital Signs Start: 12/17/19 17:03 Freq: Status: Active Protocol: Activity Type Activity Date Activity User E-Sign Co-Sign Detail Recorded Client Recorded Date Recorded By Document 12/18/19 06:00 AMS [id number] 12/18/19 06:12 AMS 12/18/19 06:00 Orthostatic Vitals Standing -Blood Pressure (90/60-120/80) 143/88 H -Extremity Use Left Arm -Pulse Rate (60-100) 79 Sitting -Blood Pressure (90/60-120/80) 148/84 H -Extremity Use Left Arm -Pulse Rate (60-100) 73 Lying -Blood Pressure (90/60-120/80) 140/80 H -Extremity Use Left Arm -Pulse Rate (60-100) 79 Intake and Output for Last 24 Hours 12/18/19 12/19/19 12/20/19 23:59 23:59 23:59 Intake Total 920 / 920 1760 / 1760 Output Total 350 / 350 600 / 600 200 / 200 Balance 570 / 570 1160 / 1160 -200 / -200 General: Alert, No apparent distress HEENT: Atraumatic, Normocephalic Oral: Moist Mucosa, No Gingival or Mucosal Lesions/ Ulcerations Psych/Mental Status: Appropriate, Anxious Microbiology Past 72 Hours 12/18/19 13:20 Stool Stool Occult Blood (JAYE) - Final Current Medications Acetaminophen (Tylenol) 650 mg PO Q6H PRN PRN PRN Reason: Pain Score 1-10/10 [facility] Admin: 12/20/19 07:51 Dose: 300 mg Documented by: Aspirin (Aspirin, Baby) 81 mg PO DAILY@0800 [facility] Last Admin: 12/20/19 07:51 Dose: 81 mg Documented by: Bisacodyl (Dulcolax) 10 mg RECTAL .PRN X 1 PRN PRN Reason: Constipation Clonazepam (Klonopin) 1 mg PO QHS [facility] Last Admin: 12/19/19 20:51 Dose: 1 mg Documented by: Clopidogrel Bisulfate (Plavix) 75 mg PO DAILY [facility] Last Admin: 12/20/19 07:51 Dose: 75 mg Documented by: Folic Acid (Folic Acid) 1 mg PO DAILY@0800 [facility] Last Admin: 12/20/19 07:51 Dose: 1 mg Documented by: Hydrochlorothiazide () 12.5 mg PO DAILY [facility] Last Admin: 12/20/19 07:51 Dose: 12.5 mg Documented by: Losartan Potassium (Cozaar) 50 mg PO DAILY [facility] Last Admin: 12/20/19 07:51 Dose: 50 mg Documented by: Magnesium Hydroxide (Milk Of Magnesia) 30 ml PO .PRN X 1 PRN PRN Reason: Constipation Metoprolol Succinate (Toprol Xl (Beta Dottie)) 100 mg PO DAILY [facility] Last Admin: 12/20/19 07:51 Dose: 100 mg Documented by: [id number]-4-Vyfk Ethyl Esters (Lovaza) 1 gm PO BID [facility] Last Admin: 12/20/19 07:51 Dose: 1 gm Documented by: Senna/Docusate Sodium (Senokot-S, Yolanda-Colace) 2 tablet PO BID [facility] Last Admin: 12/20/19 07:51 Dose: Not Given Documented by: Tadalafil (Cialis) 5 mg PO DAILY@2100 [facility] Last Admin: 12/19/19 20:51 Dose: 5 mg Documented by: STROKE Vital Signs/Narrative: Vital Signs Pulse 12/20/19 07:51 77 Medical Necessity - Tobacco Use Smoking Status: Never smoker Tobacco Use: Non-smoker Assessment/Plan All Active Problems (Last Reviewed 12/18/19 @ 13:[address] Dwayne Zeng DO) Myocardial infarction (Acute) Chest pain (Acute) TIA (transient ischemic attack) (Acute) 1. Debility * Patient states that he suddenly was just weak. Patient underwent a stroke work-up that was unremarkable. But upon further conversation it seemed that this weakness is more of a chronic indolent process. * Patient to engage with physical and Occupational Therapy with exercises and eventual transition back to home if feasible. * The neurologist who did a tele-visit felt that he should see a physical neurologist in regards to possible Parkinson's disease. Patient has no pill- rolling tremor that I can identify and really does not have the classic masked face ease but did recommend that the patient to follow-up with a movement disorder specialist to see if he does have Parkinson's or Parkinson's plus or some other type process. 2. Hyperlipidemia: No statins as it causes him to be weak and also causes epistaxis. 3. Hypertension: Stable continue with losartan and HCTZ. Inpatient E&M: [id number] Subs Hosp L1
--- NOTE | 2019-12-20 14:00 | NURSING ---
Pt ambulated hallways with x1 assist with w/w x2 laps, tolerated well.
--- NOTE | 2019-12-20 18:24 | NURSING ---
Pt ambulated hallways x1 assist with w/w x3 laps, pt tolerated well.
--- NOTE | 2019-12-20 21:00 | NURSING ---
pt assisted to restroom at this time and assisted with hs care. pt offered a walk around unit this hs by this nurse. pt refuses walk at this time and states that he is ready for bed. pt assisted into bed following hs care. call light within reach. PA attached.
[2019-12-20] MEDS: TADALAFIL 5 MG TABLET PO (21:41)
[2019-12-20] MEDS: clonazePAM 0.5 MG Tablet 1 MG PO (21:42)
[2019-12-20 22:00] VITALS: BP 118/72; PULSE 60; RESP 18; TEMP 36.8; O2SAT 96
[2019-12-21 07:30] VITALS: BP 126/66; PULSE 61; RESP 18; TEMP 36.4; O2SAT 94
--- NOTE | 2019-12-21 09:13 | CASEMGMT ---
Social Work IDT met with patient and for Team meeting. Discussed patient's progress in therapy. Pt is CGA ambulating 300 ft at FWW, but trialing no device. Pt is set up for grooming, UE dressing, [place] for bathing, CGA for LE dressing. ST is working on memory, recall, fiances, meds. Pt is completing 6 steps CGA. Pt and expressed concerns with pt walking enough. Explained other exercises are used for strengthening, etc. Discussed it pt feels better and does not feel RU is beneficial for him, he is welcome to DC home. Offered assistance with DC planning. Pt to consider. Explained Medicare has approved 13 days with EDC 12/30. Will continue to follow. Nasima Fajardo, DANIELA MONGEW
[2019-12-21 09:18] VITALS: BP 126/66; PULSE 61
[2019-12-21] MEDS: Metoprolol(XL)Succ 100 MG Tablet PO (09:18)
[2019-12-21] MEDS: Folic Acid 1 MG Tablet PO (09:18)
[2019-12-21] MEDS: Omega-3 Acid Ethyl Esters 1 GM Capsule PO ×2 (09:18→21:01)
[2019-12-21] MEDS: hydroCHLOROthiazide 12.5mg 12.5 MG PO (09:19)
[2019-12-21] MEDS: Clopidogrel Bisulfate 75 MG Tablet PO (09:19)
[2019-12-21] MEDS: Allopurinol 300 MG Tablet PO (09:19)
[2019-12-21] MEDS: Aspirin 81 MG TAB.CHEW PO (09:19)
[2019-12-21] MEDS: Losartan Potassium 50 MG Tablet PO (09:19)
[2019-12-21 19:31] VITALS: BP 144/74; PULSE 59; RESP 18; TEMP 36.8; O2SAT 94
[2019-12-21] MEDS: clonazePAM 0.5 MG Tablet 1 MG PO (21:01)
[2019-12-21] MEDS: TADALAFIL 5 MG TABLET PO (21:01)
[2019-12-21 22:00] VITALS: RESP 16
--- NOTE | 2019-12-21 22:37 | REHABEVAL_ITS ---
Admission Information Primary Diagnosis:: Weakness, possible Parkinson Disease. Status Changes from Prescreening?: No changes Identified Actual Problem List:: Falls, Mobility Impaired Potential Problem List:: DVT, Infection, UTI, Aspiration, Falls, Depression Risk of Complications DVT: LMWH, LEDA Hose, Sequential Compression Device Bleeding: Monitor Lab Values, Nursing to Teach Precautions for anti-coagulation therapy., Wound, if applicable, to be assessed every shift., Stroke patients assessed for lethargy or change in status. Infection: Clinical Staff to Monitor for S/S of infection:, S/S of infection include fever, redness, warmth, etc. Urinary Tract Infection: Monitor for frequency, burning, discomfort, or incontinence., Nursing will obtain urine sample for urinalysis and C&S when ordered. Aspiration: Clinical staff will monitor for coughing, drooling, congestion., Speech will evaluate swallowing and dsyphasia., Nursing will monitor patient swallowing during meals. Falls: Patient will be evaluated for Fall Precautions, Patient will be placed on Fall Precautions as indicated per protocol. Skin Breakdown: Nursing will assess skin daily using assessment tool., Nursing will place on Skin Breakdown Precautions as indicated. Pain: Clinical staff will assess patient's pain level per protocol., Medications will be given, if needed, and the pain level reassessed., Other methods: Massage, distraction, decrease stimulus, etc. used PRN. Plan of Care Patient requires physician specializing in physical medicine and rehab oversight to provide close medical supervision of rehab issues including: Pain Management, Sleep Problems, Bowel and Bladder, Medical and co-morbidity Management, DVT prophylaxis, Rehabilitation Leadership, Coordination of treatment team Patient needs Physical Therapy: For a minimum of 1 hour, At least 5 out of 7 days Patient needs Physical Therapy to improve:: Mobility, Mobility, Mobility, Strengthening, Transfers, Stretching, ROM, Endurance, Stairs, Gait, Balance Patient needs Occupational Therapy: For a minimum of 1 hour, At least 5 out of 7 days Patient needs Occupational Therapy to improve ADL's incl.: Eating, Grooming, Bathing, Dressing, Toileting, Toilet transfers, Community Reintegration, Higher functioning activities, Household tasks, Adaptive Equipment, Splinting, Other activities as determined Patient requires speech therapy: For a minimum of 1 hour, At least 5 out of 7 days Patient requires speech therapy for: Swallowing, Cognition, Language Skills, Compensatory Strategies Patient requires 19/11 Rehabilitation Nursing for: Pain Issues, Identifying and preventing risk factors, Monitoring and reporting current medical conditions, Assisting with ambulation, transfer, and all ADL's, Teaching patients about disease process and medications, Family teaching, Providing safe environment, Bowel and Bladder Issues, Skin integrity, Medication Management Patient needs Print And Pattern Designer/ Case Management for: Discharge Planning, Arranging Home Equipment or Services, Family Interventions Patient needs Dietary and Nutrition Services for: Adequate Nutrition, Nutritional Supplements, Nutritional Education Goals Patient will remain: free from falls, or injury at time of discharge. Patient will perform bed mobility at: MOD I level of assist. Patient will complete transfers from bed to chair at: MOD I level of assist. Patient will ambulate: with MOD I assist, - - 400 feet. Patient will complete upper body dressing at: MOD I level of assist. Patient will complete lower body dressing at: MOD I level of assist. Patient will complete toileting at: MOD I level of assist. Patient will perform bathing at: MOD I level of assist. Patient will complete grooming at: MOD I level of assist. Patient will complete home management skills at: MOD I level of assist. Patient will achieve: at MOD I assist Patient will have pain level of: of 3 or less Patient's skin will: remain intact, free from infection. Patient will receive: adequate nutrition.
--- NOTE | 2019-12-21 22:41 | PCM.TCUNOT ---
Subjective: Patient seen on Team rounds. He is sitting in chair in room. His is present, concerned patient not walking enough. Patient asked why he is weak, Teleneurology considered Parkinson Disease, need outpatient neurology follow up. Vitals/I&O's: Vital Signs Temp Pulse Resp BP Pulse Ox 98.3 F 59 L 18 144/74 H 94 12/21/19 19:31 12/21/19 19:31 12/21/19 19:31 12/21/19 19:31 12/21/19 19:31 Oxygen Delivery Method Room Air Weight: 79.288 kg Body Mass Index (BMI) 28.8 Finger Stick Blood Glucose 103 Orthostatic Vital Signs Start: 12/17/19 17:03 Freq: Status: Active Protocol: Activity Type Activity Date Activity User E-Sign Co-Sign Detail Recorded Client Recorded Date Recorded By Document 12/18/19 06:00 AMS [id number] 12/18/19 06:12 AMS 12/18/19 06:00 Orthostatic Vitals Standing -Blood Pressure (90/60-120/80) 143/88 H -Extremity Use Left Arm -Pulse Rate (60-100) 79 Sitting -Blood Pressure (90/60-120/80) 148/84 H -Extremity Use Left Arm -Pulse Rate (60-100) 73 Lying -Blood Pressure (90/60-120/80) 140/80 H -Extremity Use Left Arm -Pulse Rate (60-100) 79 Intake and Output for Last 24 Hours 12/19/19 12/20/19 12/21/19 23:59 23:59 23:59 Intake Total 1760 / 1760 1400 / 1400 1080 / 1080 Output Total 600 / 600 450 / 450 Balance 1160 / 1160 950 / 950 1080 / 1080 Past Medical History Past Medical History (Chronic Problems): Chronic Problems (Last Reviewed 12/18/19 @ 13:[address] Dwayne Zeng DO) HLD (hyperlipidemia) (Chronic) Medical History: Medical History (Last Reviewed 12/18/19 @ 13:[address] Dwayne Zeng DO) Anxiety F41.9 Depression F32.9 Hyperlipidemia E78.5 Sleep apnea G47.30 Hypertension I10 Allergies Dzxtcad-Nmw-Zhk Reductase Inhibitor Allergy (Verified 12/16/19 09:49) Other KRIS Inhibitors Adverse Reaction (Verified 12/16/19 09:49) Other alfuzosin HCl [From Uroxatral] Adverse Reaction (Verified 12/16/19 09:49) Low blood pressure Home Medications: Ambulatory Orders Medication Instructions Recorded Aspirin 81 mg PO DAILY 07/15/15 Clonazepam [Klonopin] 0.5 mg PO QHS 07/15/15 Folic Acid 1 mg PO DAILY@0800 07/15/15 Naproxen [Naprosyn] 250 mg PO BID 07/15/15 [place]-3 Acid Ethyl Esters [Lovaza] 1 gm PO BID 07/15/15 Tadalafil [Cialis] 5 mg PO DAILY 07/15/15 Vitamin D3 5,000 units PO DAILY 07/15/15 Allopurinol 300 mg PO DAILY 12/16/19 Hydrochlorothiazide 12.5 mg PO DAILY 12/16/19 Losartan Potassium [Cozaar] 50 mg PO DAILY 12/16/19 Metoprolol Succinate 100 mg PO BID 12/16/19 Clopidogrel Bisulfate [Plavix] 75 mg PO DAILY 12/17/19 Surgical History: appendectomy, - - sinus surgery Lives: Spouse/ Significant Other Smoking Status: Never smoker Tobacco Use: Non-smoker Alcohol: None Drugs: None - *Family History Sibling History Items: - - multiple sibling with stents and bypass surgery, one brother with diabetes Maternal History Items: - - cabg, mother is still alive at age 95 Paternal History Items: - - cabg Capacity - Capacity Assessment Tool Can the patient make a choice & communicate that choice?: Yes Can the patient understand benefits, risks and alternatives?: Yes Can the patient make a logical, rational choice?: Yes Is the choice the patient makes consistent w/ their values?: Yes Is there an impending, emergent risk to the patient?: No Does the patient have an Advance Directive?: No Is there a Surrogate Available?: Yes i.e. HCPOA: Yes i.e. close relative (spouse, child, parent, sibling)?: Yes Review of Systems Constitutional: Denies: Chills, Fever, Weight Change HEENT: Denies: Head Aches, Sinus Congestion, Sinus Drainage Cardiovascular: Denies: Chest Pain, Palpitations Respiratory: Denies: Cough, Shortness of breath at rest, Sputum production Gastrointestinal: Denies: Abdominal Pain, Nausea, Vomiting Genitourinary: Denies: Dysuria Musculoskeletal: Denies: Joint Pain, Joint Tenderness Skin: Denies: Rash, Wounds Neurological: Denies: Numbness, Tingling, Focal weakness Psychiatric: Denies: Anxiety, Depression, Homicidal Ideations, Suicidal Ideations Hematologic/ Lymphatic: Denies: Easy Bruising, Easy Bleeding - Physical Exam Vitals/I&O's: Vital Signs Temp Pulse Resp BP Pulse Ox 98.3 F 59 L 18 144/74 H 94 12/21/19 19:31 12/21/19 19:31 12/21/19 19:31 12/21/19 19:31 12/21/19 19:31 Oxygen Delivery Method Room Air Weight: 79.288 kg Body Mass Index (BMI) 28.8 Finger Stick Blood Glucose 103 Orthostatic Vital Signs Start: 12/17/19 17:03 Freq: Status: Active Protocol: Activity Type Activity Date Activity User E-Sign Co-Sign Detail Recorded Client Recorded Date Recorded By Document 12/18/19 06:00 AMS [id number] 12/18/19 06:12 [facility] 12/18/19 06:00 Orthostatic Vitals Standing -Blood Pressure (90/60-120/80) 143/88 H -Extremity Use Left Arm -Pulse Rate (60-100) 79 Sitting -Blood Pressure (90/60-120/80) 148/84 H -Extremity Use Left Arm -Pulse Rate (60-100) 73 Lying -Blood Pressure (90/60-120/80) 140/80 H -Extremity Use Left Arm -Pulse Rate (60-100) 79 Intake and Output for Last 24 Hours 12/19/19 12/20/19 12/21/19 23:59 23:59 23:59 Intake Total 1760 / 1760 1400 / 1400 1080 / 1080 Output Total 600 / 600 450 / 450 Balance 1160 / 1160 950 / 950 1080 / 1080 General: Alert, Oriented x3, Cooperative HEENT: Atraumatic, PERRLA, EOMI, Normocephalic Neck: Supple, No JVD, Negative Carotid Bruits Lungs: Clear to auscultation, Normal air movement Cardiovascular: Regular rate, No murmurs Abdomen: Bowel Sounds Present, Soft, Non Tender Extremities: No edema, Capillary Refill Less than 3 Seconds Skin: No rashes, No breakdown Musculoskeletal: No Tenderness to Palpation of Joints or Extremities Neurological: Cranial nerves II-XII grossly intact Psych/Mental Status: Normal Affect, Appropriate Current Medications Acetaminophen (Tylenol) 650 mg PO Q6H PRN PRN PRN Reason: Pain Score 1-10/10 Allopurinol (Zyloprim) 300 mg PO DAILYCM [facility] Last Admin: 12/21/19 09:19 Dose: 300 mg Documented by: Aspirin (Aspirin, Baby) 81 mg PO DAILY@0800 [facility] Last Admin: 12/21/19 09:19 Dose: 81 mg Documented by: Bisacodyl (Dulcolax) 10 mg RECTAL .PRN X 1 PRN PRN Reason: Constipation Clonazepam (Klonopin) 1 mg PO QHS [facility] Last Admin: 12/21/19 21:01 Dose: 1 mg Documented by: Clopidogrel Bisulfate (Plavix) 75 mg PO DAILY [facility] Last Admin: 12/21/19 09:19 Dose: 75 mg Documented by: Folic Acid (Folic Acid) 1 mg PO DAILY@0800 [facility] Last Admin: 12/21/19 09:18 Dose: 1 mg Documented by: Hydrochlorothiazide () 12.5 mg PO DAILY [facility] Last Admin: 12/21/19 09:19 Dose: 12.5 mg Documented by: Losartan Potassium (Cozaar) 50 mg PO DAILY [facility] Last Admin: 12/21/19 09:19 Dose: 50 mg Documented by: Magnesium Hydroxide (Milk Of Magnesia) 30 ml PO .PRN X 1 PRN PRN Reason: Constipation Metoprolol Succinate (Toprol Xl (Beta Dottie)) 100 mg PO DAILY [facility] Last Admin: 12/21/19 09:18 Dose: 100 mg Documented by: Vcyfq-[id number] Ethyl Esters (Lovaza) 1 gm PO BID [facility] Last Admin: 12/21/19 21:01 Dose: 1 gm Documented by: Senna/Docusate Sodium (Senokot-S, Yolanda-Colace) 2 tablet PO BID [facility] Last Admin: 12/21/19 21:02 Dose: Not Given Documented by: Tadalafil (Cialis) 5 mg PO DAILY@2100 [facility] Last Admin: 12/21/19 21:01 Dose: 5 mg Documented by: Assessment/Plan All Active Problems (Last Reviewed 12/18/19 @ 13:[address] Dwayne Zeng, DO) Myocardial infarction (Acute) Chest pain (Acute) TIA (transient ischemic attack) (Acute) 74 year old male with below past medical hospitalized for weakness, possible TIA versus Parkinson Disease, admitted to for > 3 hours therapy per day, prior to discharge home with . Debility - PT/OT. Cognition - ST. Pain - Tylenol 650MG Q6H PRN. Bowel - Senna/colace 2 tablets BID, Dulcolax 10MG daily PRN, MOM 30ML PO x1 PRN. Gout - Allopurinol 300MG daily. TIA - Aspirin 81MG daily, Plavix 75MG daily. ?REM behavioral sleep disorder - Clonazepam 1MG QHS, would be consistent with Parkinson Disease. Folate deficiency - Folic Acid 1MG daily. Hypertension - Metoprolol succinate 100MG daily, Losartan 50MG daily, HCTZ 12.5MG daily. Hyperlipidemia - Statins intolerable, Lovaza 1GM BID (No clinical evidence Lovaza helpful). BPH - Tadalafil 5MG daily.
[2019-12-22 07:33] VITALS: BP 145/81; PULSE 62; RESP 17; TEMP 36.5; O2SAT 97
[2019-12-22 07:43] VITALS: BP 132/89; BP 145/81; BP 147/73; PULSE 57; PULSE 62; PULSE 64
--- NOTE | 2019-12-22 08:34 | PN_ITS ---
Subjective: Patient seen in room, sitting in chair. He has no new complaints, he is progressing well in therapy. He has no rigidity on exam, we discussed working diagnosis of TIA, he has history of CAD. - Physical Exam Vitals/I&O's: Vital Signs Temp Pulse Resp BP Pulse Ox 97.7 F L 62 17 145/81 H 97 12/22/19 07:33 12/22/19 07:43 12/22/19 07:33 12/22/19 07:43 12/22/19 07:33 Oxygen Delivery Method Room Air Weight: 79.288 kg Body Mass Index (BMI) 28.8 Finger Stick Blood Glucose 103 Orthostatic Vital Signs Start: 12/17/19 17:03 Freq: Status: Active Protocol: Activity Type Activity Date Activity User E-Sign Co-Sign Detail Recorded Client Recorded Date Recorded By Document 12/22/19 07:43 CT [id number] 12/22/19 07:[address] CT 12/22/19 07:43 Orthostatic Vitals Standing -Blood Pressure (90/60-120/80) 132/89 H -Extremity Use Right Arm -Pulse Rate (60-100) 64 Sitting -Blood Pressure (90/60-120/80) 147/73 H -Extremity Use Right Arm -Pulse Rate (60-100) 57 L Lying -Blood Pressure (90/60-120/80) 145/81 H -Extremity Use Right Arm -Pulse Rate (60-100) 62 Intake and Output for Last 24 Hours 12/20/19 12/21/19 12/22/19 23:59 23:59 23:59 Intake Total 1400 / 1400 1280 / 1280 460 / 460 Output Total 450 / 450 250 / 250 275 / 275 Balance 950 / 950 1030 / 1030 185 / 185 General: Alert, Oriented x3, Cooperative HEENT: Atraumatic, PERRLA, EOMI, Normocephalic Neck: Supple, No JVD, Negative Carotid Bruits Lungs: Clear to auscultation, Normal air movement Cardiovascular: Regular rate, No murmurs Abdomen: Bowel Sounds Present, Soft, Non Tender Extremities: No edema, Capillary Refill Less than 3 Seconds Skin: No rashes, No breakdown Musculoskeletal: No Tenderness to Palpation of Joints or Extremities Neurological: Cranial nerves II-XII grossly intact Psych/Mental Status: Normal Affect, Appropriate Current Medications Acetaminophen (Tylenol) 650 mg PO Q6H PRN PRN PRN Reason: Pain Score 1-10/10 Allopurinol (Zyloprim) 300 mg PO DAILYCM [facility] Last Admin: 12/21/19 09:19 Dose: 300 mg Documented by: Aspirin (Aspirin, Baby) 81 mg PO DAILY@0800 [facility] Last Admin: 12/21/19 09:19 Dose: 81 mg Documented by: Bisacodyl (Dulcolax) 10 mg RECTAL .PRN X 1 PRN PRN Reason: Constipation Clonazepam (Klonopin) 1 mg PO QHS [facility] Last Admin: 12/21/19 21:01 Dose: 1 mg Documented by: Clopidogrel Bisulfate (Plavix) 75 mg PO DAILY [facility] Last Admin: 12/21/19 09:19 Dose: 75 mg Documented by: Folic Acid (Folic Acid) 1 mg PO DAILY@0800 [facility] Last Admin: 12/21/19 09:18 Dose: 1 mg Documented by: Hydrochlorothiazide () 12.5 mg PO DAILY [facility] Last Admin: 12/21/19 09:19 Dose: 12.5 mg Documented by: Losartan Potassium (Cozaar) 50 mg PO DAILY [facility] Last Admin: 12/21/19 09:19 Dose: 50 mg Documented by: Magnesium Hydroxide (Milk Of Magnesia) 30 ml PO .PRN X 1 PRN PRN Reason: Constipation Metoprolol Succinate (Toprol Xl (Beta Dottie)) 100 mg PO DAILY [facility] Last Admin: 12/21/19 09:18 Dose: 100 mg Documented by: Faaak-9-Wizk Ethyl Esters (Lovaza) 1 gm PO BID [facility] Last Admin: 12/21/19 21:01 Dose: 1 gm Documented by: Senna/Docusate Sodium (Senokot-S, Yolanda-Colace) 2 tablet PO BID [facility] Last Admin: 12/21/19 21:02 Dose: Not Given Documented by: Tadalafil (Cialis) 5 mg PO DAILY@2100 [facility] Last Admin: 12/21/19 21:01 Dose: 5 mg Documented by: Capacity - Capacity Assessment Tool Can the patient make a choice & communicate that choice?: Yes Can the patient understand benefits, risks and alternatives?: Yes Can the patient make a logical, rational choice?: Yes Is the choice the patient makes consistent w/ their values?: Yes Is there an impending, emergent risk to the patient?: No Does the patient have an Advance Directive?: No Is there a Surrogate Available?: Yes i.e. HCPOA: Yes i.e. close relative (spouse, child, parent, sibling)?: Yes Medical Necessity - Tobacco Use Smoking Status: Never smoker Tobacco Use: Non-smoker Assessment/Plan All Active Problems (Last Reviewed 12/18/19 @ 13:[address] Dwayne Zeng, DO) Myocardial infarction (Acute) Chest pain (Acute) TIA (transient ischemic attack) (Acute) 74 year old male with below past medical hospitalized for weakness, possible TIA versus Parkinson Disease, admitted to for > 3 hours therapy per day, prior to discharge home with . * Debility - PT/OT. * Cognition - ST. * Pain - Tylenol 650MG Q6H PRN. * Bowel - Senna/colace 2 tablets BID, Dulcolax 10MG daily PRN, MOM 30ML PO x1 PRN. * Gout - Allopurinol 300MG daily. * TIA - Aspirin 81MG daily, Plavix 75MG daily. * Insomnia - Clonazepam 1MG QHS. * Folate deficiency - Folic Acid 1MG daily. * Hypertension - Metoprolol succinate 100MG daily, Losartan 50MG daily, HCTZ 12.5MG daily. * Hyperlipidemia - Statins intolerable, Lovaza 1GM BID (No clinical evidence Lovaza helpful). * BPH - Tadalafil 5MG daily.
[2019-12-22] MEDS: hydroCHLOROthiazide 12.5mg 12.5 MG PO (08:51)
[2019-12-22] MEDS: Aspirin 81 MG TAB.CHEW PO (08:51)
[2019-12-22] MEDS: Folic Acid 1 MG Tablet PO (08:51)
[2019-12-22] MEDS: Allopurinol 300 MG Tablet PO (08:51)
[2019-12-22] MEDS: Losartan Potassium 50 MG Tablet PO (08:51)
[2019-12-22] MEDS: Omega-3 Acid Ethyl Esters 1 GM Capsule PO ×2 (08:51→21:06)
[2019-12-22 08:52] VITALS: PULSE 62
[2019-12-22] MEDS: Metoprolol(XL)Succ 100 MG Tablet PO (08:52)
[2019-12-22] MEDS: Clopidogrel Bisulfate 75 MG Tablet PO (08:52)
[2019-12-22 10:26] VITALS: BP 144/78; PULSE 60
--- NOTE | 2019-12-22 10:28 | NURSING ---
therapy staff made this nurse aware that pt was complaining of dizziness during therapy session. this nurse checked pt vitals and pt has bp of 144/78 and pulse of 60. staff did orthostatic vitals earlier this am- slightly positive. staff encourages pt to drink more as to orthostatic hypotension could possibly be related to dehydration. pt agrees to drink more water and not soda. this nurse gives pt another 240 ml of water at this time. intake of water well this morning. will continue to monitor for dizziness and encourage fluids. staff to recheck vitals throughout the day as needed and with any change in condition that may occur. pt continues to work with therapy at this time.
--- NOTE | 2019-12-22 17:47 | PCA ---
pt. ambulated in hallways with CGA x5 laps, tolerated well.
--- NOTE | 2019-12-22 18:10 | NURSING ---
pt ambulated by this nurse around unit x3 at this time. present and joins pt and this nurse for walk.
[2019-12-22 19:07] VITALS: BP 124/68; PULSE 58; RESP 16; TEMP 36.8; O2SAT 94
[2019-12-22] MEDS: clonazePAM 0.5 MG Tablet 1 MG PO (21:06)
[2019-12-22] MEDS: TADALAFIL 5 MG TABLET PO (21:13)
[2019-12-22 22:00] VITALS: RESP 16
--- NOTE | 2019-12-23 00:46 | NURSING ---
December 22, 2019 @ 19:05. Hugh RN and this nurse went into pt room to speak with pt and spouse re:spouse dismay. Hugh nurse provided pt and spouse with [employer] business card to contact if desired as spouse made her dismay known. Spouse expressed her feelings repeatedly stating that she feels she was not happy with the way her concerns were addressed during Saturday's Team Meeting. This staff listened as spouse talked about her feelings/expectations and wishes for her spouse while in the Inpatient Rehab Unit. Pt and spouse were reassured that it is the goal and desire to provide quality care to enable pt to return home with the optimal recovery possible. Spouse expressed appreciation for this reassurance and stated she does everything she can to enable him to have a long and healthy life.
[2019-12-23 07:35] VITALS: BP 115/74; PULSE 57; RESP 17; O2SAT 93
[2019-12-23 07:39] VITALS: BP 115/74; PULSE 60
[2019-12-23] MEDS: hydroCHLOROthiazide 12.5mg 12.5 MG PO (07:39)
[2019-12-23] MEDS: Allopurinol 300 MG Tablet PO (07:39)
[2019-12-23] MEDS: Carbidopa/Levodopa 25/100 Tablet PO ×3 (07:39→16:33)
[2019-12-23] MEDS: Aspirin 81 MG TAB.CHEW PO (07:39)
[2019-12-23] MEDS: Losartan Potassium 50 MG Tablet PO (07:39)
[2019-12-23] MEDS: Omega-3 Acid Ethyl Esters 1 GM Capsule PO ×2 (07:39→21:18)
[2019-12-23] MEDS: Metoprolol(XL)Succ 100 MG Tablet PO (07:39)
[2019-12-23] MEDS: Folic Acid 1 MG Tablet PO (07:39)
[2019-12-23] MEDS: Clopidogrel Bisulfate 75 MG Tablet PO (07:39)
--- NOTE | 2019-12-23 08:28 | PN_ITS ---
Subjective: Patient seen in room, sitting in chair. Therapy noted shuffling gait, I did not see any upper body rigidity, but I did not walk him. I let patient know Sinemet 25/100MG TID started empirically for Parkinson Disease. I told him to let us know if he notices any difference with taking Sinemet, any improvement with gait, standing, walking, especially during therapy. - Physical Exam Vitals/I&O's: Vital Signs Temp Pulse Resp BP Pulse Ox 98.2 F 60 17 115/74 93 12/22/19 19:07 12/23/19 07:39 12/23/19 07:35 12/23/19 07:39 12/23/19 07:35 Oxygen Delivery Method Room Air Weight: 79.288 kg Body Mass Index (BMI) 28.8 Finger Stick Blood Glucose 103 Orthostatic Vital Signs Start: 12/17/19 17:03 Freq: Status: Active Protocol: Activity Type Activity Date Activity User E-Sign Co-Sign Detail Recorded Client Recorded Date Recorded By Document 12/22/19 07:43 CT [id number] 12/22/19 07:[address] 12/22/19 07:43 Orthostatic Vitals Standing -Blood Pressure (90/60-120/80) 132/89 H -Extremity Use Right Arm -Pulse Rate (60-100) 64 Sitting -Blood Pressure (90/60-120/80) 147/73 H -Extremity Use Right Arm -Pulse Rate (60-100) 57 L Lying -Blood Pressure (90/60-120/80) 145/81 H -Extremity Use Right Arm -Pulse Rate (60-100) 62 Intake and Output for Last 24 Hours 12/21/19 12/22/19 12/23/19 23:59 23:59 23:59 Intake Total 1280 / 1280 2840 / 2840 100 / 100 Output Total 250 / 250 2175 / 2175 300 / 300 Balance 1030 / 1030 665 / 665 -200 / -200 General: Alert, Oriented x3, Cooperative HEENT: Atraumatic, PERRLA, EOMI, Normocephalic Neck: Supple, No JVD, Negative Carotid Bruits Lungs: Clear to auscultation, Normal air movement Cardiovascular: Regular rate, No murmurs Abdomen: Bowel Sounds Present, Soft, Non Tender Extremities: No edema, Capillary Refill Less than 3 Seconds Skin: No rashes, No breakdown Musculoskeletal: No Tenderness to Palpation of Joints or Extremities Neurological: Cranial nerves II-XII grossly intact Psych/Mental Status: Normal Affect, Appropriate Current Medications Acetaminophen (Tylenol) 650 mg PO Q6H PRN PRN PRN Reason: Pain Score 1-10/10 Allopurinol (Zyloprim) 300 mg PO DAILYCM [facility] Last Admin: 12/23/19 07:39 Dose: 300 mg Documented by: Aspirin (Aspirin, Baby) 81 mg PO DAILY@0800 [facility] Last Admin: 12/23/19 07:39 Dose: 81 mg Documented by: Bisacodyl (Dulcolax) 10 mg RECTAL .PRN X 1 PRN PRN Reason: Constipation Carbidopa/Levodopa (Sinemet) 1 tablet PO TIDAC [facility] Last Admin: 12/23/19 07:39 Dose: 1 tablet Documented by: Clonazepam (Klonopin) 1 mg PO QHS [facility] Last Admin: 12/22/19 21:06 Dose: 1 mg Documented by: Clopidogrel Bisulfate (Plavix) 75 mg PO DAILY [facility] Last Admin: 12/23/19 07:39 Dose: 75 mg Documented by: Folic Acid (Folic Acid) 1 mg PO DAILY@0800 [facility] Last Admin: 12/23/19 07:39 Dose: 1 mg Documented by: Hydrochlorothiazide () 12.5 mg PO DAILY [facility] Last Admin: 12/23/19 07:39 Dose: 12.5 mg Documented by: Losartan Potassium (Cozaar) 50 mg PO DAILY [facility] Last Admin: 12/23/19 07:39 Dose: 50 mg Documented by: Magnesium Hydroxide (Milk Of Magnesia) 30 ml PO .PRN X 1 PRN PRN Reason: Constipation Metoprolol Succinate (Toprol Xl (Beta Dottie)) 100 mg PO DAILY [facility] Last Admin: 12/23/19 07:39 Dose: 100 mg Documented by: Wcakx-[id number] Ethyl Esters (Lovaza) 1 gm PO BID [facility] Last Admin: 12/23/19 07:39 Dose: 1 gm Documented by: Senna/Docusate Sodium (Senokot-S, Yolanda-Colace) 2 tablet PO BID [facility] Last Admin: 12/23/19 07:41 Dose: Not Given Documented by: Tadalafil (Cialis) 5 mg PO DAILY@2100 [facility] Last Admin: 12/22/19 21:13 Dose: 5 mg Documented by: Capacity - Capacity Assessment Tool Can the patient make a choice & communicate that choice?: Yes Can the patient understand benefits, risks and alternatives?: Yes Can the patient make a logical, rational choice?: Yes Is the choice the patient makes consistent w/ their values?: Yes Is there an impending, emergent risk to the patient?: No Does the patient have an Advance Directive?: No Is there a Surrogate Available?: Yes i.e. HCPOA: Yes i.e. close relative (spouse, child, parent, sibling)?: Yes Medical Necessity - Tobacco Use Smoking Status: Never smoker Tobacco Use: Non-smoker Assessment/Plan All Active Problems (Last Reviewed 12/18/19 @ 13:[address] Dwayne Zeng, DO) Myocardial infarction (Acute) Chest pain (Acute) TIA (transient ischemic attack) (Acute) 74 year old male with below past medical hospitalized for weakness, possible TIA versus Parkinson Disease, admitted to for > 3 hours therapy per day, prior to discharge home with . * Debility - PT/OT. * Cognition - ST. * Pain - Tylenol 650MG Q6H PRN. * Bowel - Senna/colace 2 tablets BID, Dulcolax 10MG daily PRN, MOM 30ML PO x1 PRN. * Gout - Allopurinol 300MG daily. * TIA - Aspirin 81MG daily, Plavix 75MG daily. * Insomnia - Clonazepam 1MG QHS. * Folate deficiency - Folic Acid 1MG daily. * Hypertension - Metoprolol succinate 100MG daily, Losartan 50MG daily, HCTZ 12.5MG daily. * Hyperlipidemia - Statins intolerable, Lovaza 1GM BID (No clinical evidence Lovaza helpful). * BPH - Tadalafil 5MG daily. * Parkinsonism - Rx Sinemet 25/100MG TID trial, he will let us know if helpful, outpatient Neurology follow up.
--- NOTE | 2019-12-23 16:00 | CASEMGMT ---
Social Work Spoke with patient about DC Plans and recent medication order. Inquired if patient would like to DC home or remain to continue to monitor for change in med. Pt would like to remain until Team Saturday for to reevaluate. Reexplained Medicare has approved days to DC 12/30. Pt understandable. Pt had no concerns. Will continue to follow. Nasima Fajardo, [employer]
[2019-12-23 19:31] VITALS: BP 109/58; PULSE 54; RESP 16; TEMP 36.8; O2SAT 95
[2019-12-23] MEDS: TADALAFIL 5 MG TABLET PO (20:43)
[2019-12-23 20:45] VITALS: RESP 16
[2019-12-23] MEDS: Senna/Docusate Sodium 1 Tablet 2 TABLET PO (21:17)
[2019-12-23] MEDS: clonazePAM 0.5 MG Tablet 1 MG PO (21:18)
[2019-12-24] MEDS: Carbidopa/Levodopa 25/100 Tablet PO ×3 (06:00→15:45)
[2019-12-24 07:49] VITALS: BP 120/69; PULSE 57; RESP 18; TEMP 36.4; O2SAT 96
[2019-12-24] MEDS: hydroCHLOROthiazide 12.5mg 12.5 MG PO (07:56)
[2019-12-24] MEDS: Aspirin 81 MG TAB.CHEW PO (07:56)
[2019-12-24] MEDS: Losartan Potassium 50 MG Tablet PO (07:56)
[2019-12-24] MEDS: Allopurinol 300 MG Tablet PO (07:56)
[2019-12-24] MEDS: Folic Acid 1 MG Tablet PO (07:56)
[2019-12-24] MEDS: Clopidogrel Bisulfate 75 MG Tablet PO (07:56)
[2019-12-24] MEDS: Omega-3 Acid Ethyl Esters 1 GM Capsule PO ×2 (07:56→21:11)
[2019-12-24 07:57] VITALS: PULSE 65
[2019-12-24] MEDS: Metoprolol(XL)Succ 100 MG Tablet PO (07:57)
[2019-12-24 19:13] VITALS: BP 127/67; PULSE 58; RESP 16; TEMP 36.9
[2019-12-24] MEDS: clonazePAM 0.5 MG Tablet 1 MG PO (21:11)
[2019-12-24] MEDS: TADALAFIL 5 MG TABLET PO (21:12)
[2019-12-25] MEDS: Carbidopa/Levodopa 25/100 Tablet PO ×3 (06:34→15:58)
[2019-12-25] MEDS: Clopidogrel Bisulfate 75 MG Tablet PO (07:47)
[2019-12-25] MEDS: hydroCHLOROthiazide 12.5mg 12.5 MG PO (07:47)
[2019-12-25] MEDS: Omega-3 Acid Ethyl Esters 1 GM Capsule PO ×2 (07:47→21:02)
[2019-12-25] MEDS: Aspirin 81 MG TAB.CHEW PO (07:48)
[2019-12-25] MEDS: Folic Acid 1 MG Tablet PO (07:48)
[2019-12-25] MEDS: Losartan Potassium 50 MG Tablet PO (07:48)
[2019-12-25] MEDS: Allopurinol 300 MG Tablet PO (07:48)
[2019-12-25 07:51] VITALS: PULSE 59
[2019-12-25] MEDS: Metoprolol(XL)Succ 100 MG Tablet PO (07:51)
[2019-12-25 08:00] VITALS: BP 116/69; PULSE 57; RESP 18; TEMP 36.7; O2SAT 95
--- NOTE | 2019-12-25 14:13 | NURSING ---
Pt ambulated x6 laps around hallways with standby staff assist, tolerated well.
--- NOTE | 2019-12-25 18:45 | NURSING ---
pt ambulated throughout hallways with no device with staff standby x6 laps, tolerated well.
[2019-12-25 20:39] VITALS: BP 147/56; PULSE 59; RESP 16; TEMP 36.3; O2SAT 97
[2019-12-25] MEDS: clonazePAM 0.5 MG Tablet 1 MG PO (21:02)
[2019-12-25] MEDS: TADALAFIL 5 MG TABLET PO (21:02)
[2019-12-26 08:30] VITALS: BP 109/76; PULSE 64; RESP 16; TEMP 36.5; O2SAT 94
[2019-12-26] MEDS: Omega-3 Acid Ethyl Esters 1 GM Capsule PO ×2 (08:31→21:02)
[2019-12-26] MEDS: Allopurinol 300 MG Tablet PO (08:31)
[2019-12-26] MEDS: hydroCHLOROthiazide 12.5mg 12.5 MG PO (08:31)
[2019-12-26] MEDS: Aspirin 81 MG TAB.CHEW PO (08:31)
[2019-12-26] MEDS: Losartan Potassium 50 MG Tablet PO (08:31)
[2019-12-26] MEDS: Clopidogrel Bisulfate 75 MG Tablet PO (08:32)
[2019-12-26] MEDS: Folic Acid 1 MG Tablet PO (08:32)
[2019-12-26 08:33] VITALS: PULSE 61
[2019-12-26] MEDS: Metoprolol(XL)Succ 100 MG Tablet PO (08:33)
[2019-12-26] MEDS: Carbidopa/Levodopa 25/100 Tablet PO ×3 (08:34→15:46)
[2019-12-26 19:31] VITALS: BP 106/67; PULSE 57; RESP 16; TEMP 36.5; O2SAT 96
[2019-12-26] MEDS: clonazePAM 0.5 MG Tablet 1 MG PO (21:02)
[2019-12-26] MEDS: TADALAFIL 5 MG TABLET PO (21:02)
[2019-12-27] MEDS: Carbidopa/Levodopa 25/100 Tablet PO ×3 (06:53→15:54)
[2019-12-27 08:00] VITALS: BP 103/62; PULSE 60; RESP 18; TEMP 36.6; O2SAT 95
[2019-12-27] MEDS: Folic Acid 1 MG Tablet PO (08:03)
[2019-12-27] MEDS: hydroCHLOROthiazide 12.5mg 12.5 MG PO (08:03)
[2019-12-27] MEDS: Aspirin 81 MG TAB.CHEW PO (08:03)
[2019-12-27] MEDS: Allopurinol 300 MG Tablet PO (08:03)
[2019-12-27] MEDS: Omega-3 Acid Ethyl Esters 1 GM Capsule PO ×2 (08:03→21:22)
[2019-12-27] MEDS: Losartan Potassium 50 MG Tablet PO (08:03)
[2019-12-27 08:04] VITALS: PULSE 60
[2019-12-27] MEDS: Metoprolol(XL)Succ 100 MG Tablet PO (08:04)
[2019-12-27] MEDS: Clopidogrel Bisulfate 75 MG Tablet PO (08:04)
--- NOTE | 2019-12-27 09:03 | NURSING ---
Up independently throughout facility and gait steady and no complaints voiced. Patient has ambulated several times in hallway.
[2019-12-27 20:15] VITALS: BP 113/69; PULSE 56; RESP 18; TEMP 36.7; O2SAT 18; O2SAT 94
[2019-12-27] MEDS: clonazePAM 0.5 MG Tablet 1 MG PO (21:21)
[2019-12-27] MEDS: TADALAFIL 5 MG TABLET PO (21:22)
--- NOTE | 2019-12-28 04:37 | NURSING ---
reviewed and agree with LDR NURSE assessment and functionals.
[2019-12-28] MEDS: Allopurinol 300 MG Tablet PO (07:59)
[2019-12-28] MEDS: Aspirin 81 MG TAB.CHEW PO (07:59)
[2019-12-28] MEDS: Clopidogrel Bisulfate 75 MG Tablet PO (07:59)
[2019-12-28] MEDS: Folic Acid 1 MG Tablet PO (07:59)
[2019-12-28] MEDS: Omega-3 Acid Ethyl Esters 1 GM Capsule PO (07:59)
[2019-12-28] MEDS: hydroCHLOROthiazide 12.5mg 12.5 MG PO (07:59)
[2019-12-28] MEDS: Losartan Potassium 50 MG Tablet PO (07:59)
[2019-12-28 08:00] VITALS: BP 122/65; PULSE 61
[2019-12-28] MEDS: Metoprolol(XL)Succ 100 MG Tablet PO (08:00)
[2019-12-28 08:04] VITALS: BP 122/65; PULSE 61; RESP 16; TEMP 36.9; O2SAT 95
--- NOTE | 2019-12-28 10:02 | DCINST_ITS ---
You will use the following diet at home:: No restrictions, Regular Your food should be the consistency of: Regular Your liquids should be the consistency of: Regular/Thin Discharge Activity: Return to Normal Activity, May Shower, Use Walker Weight Bearing Status: Weight bearing as tolerated Call your doctor if you observe: Fever of 101 or Higher, Inability to urinate, Inability to have a bowel movement, Shortness of breath, Chest pain, Uncontrolled pain Allergies/Adverse Reactions: Allergies Teottvu-Lwg-Vij Reductase Inhibitor Allergy (Verified 12/16/19 09:49) Other KRIS Inhibitors Adverse Reaction (Verified 12/16/19 09:49) Other alfuzosin HCl [From Uroxatral] Adverse Reaction (Verified 12/16/19 09:49) Low blood pressure Medications to take at Discharge Aspirin 81 mg PO DAILY 07/15/15 Clonazepam [Klonopin] 0.5 mg PO QHS 07/15/15 Folic Acid 1 mg PO DAILY@0800 07/15/15 [place]-3 Acid Ethyl Esters [Lovaza] 1 gm PO BID 07/15/15 Tadalafil [Cialis] 5 mg PO DAILY 07/15/15 Vitamin D3 5,000 units PO DAILY 07/15/15 Allopurinol 300 mg PO DAILY 12/16/19 Hydrochlorothiazide 12.5 mg PO DAILY 12/16/19 Losartan Potassium [Cozaar] 50 mg PO DAILY 12/16/19 Clopidogrel Bisulfate [Plavix] 75 mg PO DAILY #30 tab 12/28/19 Metoprolol(XL)Succ [Toprol Xl (Beta Dottie)] 100 mg PO DAILY tablet 12/28/19 Tadalafil [Cialis] 5 mg PO DAILY@2100 tablet 12/28/19 The following prescriptions were given: Clopidogrel Bisulfate [Plavix] 75 mg PO DAILY #30 tab Transmission Status: Pending to [facility] #30 Primary Care Physician: Kyle Jaquez III, MD [Primary Care Provider] - Please follow up with your Primary Care Physician in: 1 week. Test Results: Test results from this visit will be discussed in further detail at your follow- up appointment, if applicable. Please Follow Up With: Dr. Kyle Jaquez III-PCP When: Saturday Please Follow Up With: Kyle Jaquez III, MD
--- NOTE | 2019-12-28 10:03 | PCM.DC.SUM ---
Discharge Date and Diagnosis Date of Admission: 12/18/19 Date of Discharge: 12/28/19 - Secondary Discharge Diagnosis Chronic Problems: Chronic Problems (Last Reviewed 12/18/19 @ 13:[address] Dwayne Zeng DO) HLD (hyperlipidemia) (Chronic) Hospital Course and Treatment Imaging Results: 12/17/19 16:04 Diet: Cardiac - Heart Healthy Food consistency:: Regular Liquid Consistency:: Regular/Thin Diet Comments: No Straw Operations: None Procedures: None Summary of Care Provided: The patient is a 74 year old Male with below past medical history hospitalized for debility, stroke ruled out. Possible transient ischemic attack. On RU, failed therapeutic trial of Sinemet for Parkinsonism. Will need outpatient follow up with Neurology. Discharge home with . - Physical Exam Vitals/I&O's: Vital Signs Temp Pulse Resp BP Pulse Ox 98.5 F 61 16 122/65 H 95 12/28/19 08:04 12/28/19 08:04 12/28/19 08:04 12/28/19 08:04 12/28/19 08:04 Oxygen Delivery Method Room Air Weight: 78.5 kg Body Mass Index (BMI) 28.8 Finger Stick Blood Glucose 103 Orthostatic Vital Signs Start: 12/17/19 17:03 Freq: Status: Active Protocol: Activity Type Activity Date Activity User E-Sign Co-Sign Detail Recorded Client Recorded Date Recorded By Document 12/22/19 07:43 CT [id number] 12/22/19 07:[address] CT 12/22/19 07:43 Orthostatic Vitals Standing -Blood Pressure (90/60-120/80) 132/89 H -Extremity Use Right Arm -Pulse Rate (60-100) 64 Sitting -Blood Pressure (90/60-120/80) 147/73 H -Extremity Use Right Arm -Pulse Rate (60-100) 57 L Lying -Blood Pressure (90/60-120/80) 145/81 H -Extremity Use Right Arm -Pulse Rate (60-100) 62 Intake and Output for Last 24 Hours 12/26/19 12/27/19 12/28/19 23:59 23:59 23:59 Intake Total 1000 / 1000 Balance 1000 / 1000 Current Medications Acetaminophen (Tylenol) 650 mg PO Q6H PRN PRN PRN Reason: Pain Score 1-10/10 Allopurinol (Zyloprim) 300 mg PO DAILYCM [facility] Last Admin: 12/28/19 07:59 Dose: 300 mg Documented by: Aspirin (Aspirin, Baby) 81 mg PO DAILY@0800 [facility] Last Admin: 12/28/19 07:59 Dose: 81 mg Documented by: Bisacodyl (Dulcolax) 10 mg RECTAL .PRN X 1 PRN PRN Reason: Constipation Clonazepam (Klonopin) 1 mg PO QHS [facility] Last Admin: 12/27/19 21:21 Dose: 1 mg Documented by: Clopidogrel Bisulfate (Plavix) 75 mg PO DAILY [facility] Last Admin: 12/28/19 07:59 Dose: 75 mg Documented by: Folic Acid (Folic Acid) 1 mg PO DAILY@0800 [facility] Last Admin: 12/28/19 07:59 Dose: 1 mg Documented by: Hydrochlorothiazide () 12.5 mg PO DAILY [facility] Last Admin: 12/28/19 07:59 Dose: 12.5 mg Documented by: Losartan Potassium (Cozaar) 50 mg PO DAILY [facility] Last Admin: 12/28/19 07:59 Dose: 50 mg Documented by: Magnesium Hydroxide (Milk Of Magnesia) 30 ml PO .PRN X 1 PRN PRN Reason: Constipation Metoprolol Succinate (Toprol Xl (Beta Dottie)) 100 mg PO DAILY [facility] Last Admin: 12/28/19 08:00 Dose: 100 mg Documented by: Uvyju-[id number]-Fzqe Ethyl Esters (Lovaza) 1 gm PO BID [facility] Last Admin: 12/28/19 07:59 Dose: 1 gm Documented by: Senna/Docusate Sodium (Senokot-S, Yolanda-Colace) 2 tablet PO BID [facility] Last Admin: 12/28/19 08:01 Dose: Not Given Documented by: Tadalafil (Cialis) 5 mg PO DAILY@2100 [facility] Last Admin: 12/27/19 21:22 Dose: 5 mg Documented by: Discharge Diet: No Restrictions Discharge Activity: Return to Normal Activity, May Shower, Use Walker Weight Bearing Status: Weight bearing as tolerated Call your doctor if you observe: Fever of 101 or Higher, Inability to urinate, Inability to have a bowel movement, Shortness of breath, Chest pain, Uncontrolled pain Home Medications: Medications to take at Discharge Aspirin 81 mg PO DAILY 07/15/15 Clonazepam [Klonopin] 0.5 mg PO QHS 07/15/15 Folic Acid 1 mg PO DAILY@0800 07/15/15 [place]-3 Acid Ethyl Esters [Lovaza] 1 gm PO BID 07/15/15 Tadalafil [Cialis] 5 mg PO DAILY 07/15/15 Vitamin D3 5,000 units PO DAILY 07/15/15 Allopurinol 300 mg PO DAILY 12/16/19 Hydrochlorothiazide 12.5 mg PO DAILY 12/16/19 Losartan Potassium [Cozaar] 50 mg PO DAILY 12/16/19 Clopidogrel Bisulfate [Plavix] 75 mg PO DAILY #30 tab 12/28/19 Metoprolol(XL)Succ [Toprol Xl (Beta Dottie)] 100 mg PO DAILY tablet 12/28/19 Tadalafil [Cialis] 5 mg PO DAILY@2100 tablet 12/28/19 Following Prescriptions Were Given to Patient: Clopidogrel Bisulfate [Plavix] 75 mg PO DAILY #30 tab Transmission Status: Pending to [facility] #30 Primary Care Physician: Kyle Jaquez III, MD [Primary Care Provider] - Please follow up with your Primary Care Physician in: 1 week. Please Follow Up With: Dr. Kyle Jaquez III-PCP When: Saturday Please Follow Up With: Kyle Jaquez III, MD Disposition: Home Minutes spent on discharge:: 30 Patient Condition:: Good Medical Necessity - Tobacco Use Smoking Status: Never smoker Tobacco Use: Non-smoker Meaningful Use Info Meaningful Use Diagnoses (Choose all that apply): None applicable
--- NOTE | 2019-12-28 10:10 | CASEMGMT ---
Social Work IDT met with patient and for Team Meeting. Discussed patient's progress in therapy. Pt is mod I for all tasks, walking on multiple surfaces for extended period of time. Pt has very good activity tolerance, completed [address] working on higher level cognitive functioning and finances. Explained Medicare approved 13 days. Pt and requesting to DC home on this date. IDT agreeable. Pt denied any continued therapy or DME needs. Plan: DC home with 12/27 with no needs. DANIELA SalinasW
--- NOTE | 2019-12-28 11:50 | NURSING ---
discharged home with . Discharge instructions, medications and appointments discussed with pt. denies questions or concerns
[2019-12-28 11:51] VITALS: BP 122/65; PULSE 61; RESP 16; TEMP 36.9; O2SAT 95
== END 2019-12-28 11:52 | disposition home or self-care (01) | DRG 57 ==
PROVIDERS: Admitting Provider Internal Medicine; PCP Family Medicine; Visit Provider Internal Medicine
DX: G20 Parkinson's disease (principal); E78.5 Hyperlipidemia, unspecified; G47.30 Sleep apnea, unspecified; F41.9 Anxiety disorder, unspecified; I10 Essential (primary) hypertension; F32.9 Major depressive disorder, single episode, unspecified; I25.2 Old myocardial infarction; N40.0 Benign prostatic hyperplasia without lower urinary tract symptoms; M10.9 Gout, unspecified; Z86.73 Personal history of transient ischemic attack (TIA), and cerebral infarction without residual deficits
CPT/HCPCS: 36415; 70450; 70496; 70498; 71045; 72125; 80048; 80061; 81001; 82274; 82306; 84484; 85025; 85610; 85730; 92507; 92523; 92526; 92610; 93005; 93306; 94762; 97110; 97116; 97162; 97166; 97530; 97535; 97537; 97802; 99218; 99251; 99285; Q9967; A4216; G0378; G0463

== ENCOUNTER 2020-05-20 14:32 | Outpatient (RCR) | payer MEDICARE, OTHER, SELFPAY | END 2020-05-20 23:59 | LOC: IMMUN 14:32 | PROVIDERS: PCP Family Medicine; Visit Provider Family Medicine | DX: Z23 Encounter for immunization (principal) | CPT/HCPCS: 0011A; 0012A; 91301 ==

== ENCOUNTER 2024-01-23 10:12 | Emergency (ER) | payer MEDICARE, OTHER, SELFPAY ==
[2024-01-23 10:13] VITALS: BP 162/87; PULSE 65; RESP 15; TEMP 36.6; O2SAT 100; BMI 28.5
--- NOTE | 2024-01-23 11:37 | EKG12_ITS ---
Test Reason : Blood Pressure : / mmHG Vent. Rate : 061 BPM Atrial Rate : 061 BPM P-R Int : 208 ms QRS Dur : 174 ms QT Int : 476 ms P-R-T Axes : 054 -47 112 degrees QTc Int : 479 ms Normal sinus rhythm Left axis deviation Left bundle branch block Abnormal ECG Confirmed by Travis Baird ([id number]), proposal editor CRISTIAN IBANEZ ([id number]) on 01/24/2024 9:20:26 AM Referred By: Confirmed By:Travis Baird
--- NOTE | 2024-01-23 11:39 | EX.ED.DYSGE1 ---
HPI History of Present Illness Chief Complaint: Weakness Informant: patient Narrative Narrative: Patient is 79-year-old male with history of anxiety, generalized weakness, TIA coronary artery disease, prior open heart surgery, hyperlipidemia, obstructive sleep apnea and hypertension presenting with generalized weakness. Patient notes he has been under increased stress as they occur only trying to sell their house and pack it out but they are hoarders and their house is a mess. He states lately he has been is been too weak to walk to the barn or even pick something up. This been very frustrating to him. He notes that sometimes he gets weird sensation or flutter in his chest when he tries to do things. Denies any cough or shortness of breath. Notes that on January 14 he stopped using his CPAP because he was having dental pain. Denies any change in his symptoms associated with his compliant with his CPAP. Denies any leg swelling, fever, chest pain, dyspnea on exertion or black or blood in his stool. Notes that he has had frequent stools that are soft. Does take Plavix. Does note that he gets a lot of pain in his hands and extremities and will take up to 600 mg of naproxen a day which does help. Finally patient states that he has been having nausea for weeks now. Denies any vomiting. States it gets better when he gets distracted. Thinks it stress related. [facility] Medical History Right shoulder pain Sleep apnea Depression Anxiety Hyperlipidemia Hypertension TIA (transient ischemic attack) HLD (hyperlipidemia) Chest pain Myocardial infarction Home Medications ?Medication ?Instructions ?Recorded ?Last Taken ?Type Aspirin 81 mg PO DAILY heart health 07/15/15 07/15/15 17:30 History Vitamin D3 5,000 units PO DAILY Vitamin 07/15/15 07/15/15 08:00 History folic acid 1 mg tablet 1 mg PO DAILY@0800 Check with 07/15/15 07/15/15 08:00 History primary doctor allopurinol 300 mg tablet 300 mg PO DAILY Check with primary 12/16/19 Unknown History doctor hydrochlorothiazide 12.5 mg capsule 12.5 mg PO DAILY BP 12/16/19 Unknown History losartan 50 mg tablet 50 mg PO DAILY BP 12/16/19 Unknown History clopidogrel 75 mg tablet 75 mg PO DAILY Check with primary 12/28/19 Unknown Rx doctor #30 tabs metoprolol succinate 100 mg 100 mg PO DAILY 12/28/19 Unknown Rx tablet,extended release 24 hr clonazepam 0.5 mg tablet 0.5 mg PO QHS PRN panic attacks/ 11/15/22 Unknown History agoraphobi tadalafil 5 mg tablet (Cialis) 5 mg PO DAILY PRN sexual activity 11/15/22 Unknown History Allergy/AdvReac Type Severity Reaction Status Date / Time Pwkysnm-VYY-IsG Reductase Allergy Other Verified 01/23/24 10:13 Inhibitor (Myyegrj-Vwa-Jov Reductase Inhibitor) KRIS Inhibitors AdvReac Other Verified 01/23/24 10:13 alfuzosin HCl (From AdvReac Low blood Verified 01/23/24 10:13 Uroxatral) pressure Surgical History Hx of nasal polypectomy Hx of appendectomy Hx of heart bypass surgery Social History Smoking Status: Never smoker alcohol intake: never ROS ROS ED Constitutional Constitutional ED: Denies chills or fever(s) Eyes Eyes: Denies blurry vision or change in vision Cardiovascular Cardiovascular: Denies chest pain Respiratory/Chest Respiratory/Chest: Denies cough Gastrointestinal Gastrointestinal: Reports diarrhea and nausea; Denies abdominal pain, melena or vomiting Musculoskeletal Musculoskeletal: Reports arthralgias and myalgias; Denies neck pain Integumentary Denies rash Neurologic Neurologic: Reports weakness; Denies headache(s) or paresthesias Hematologic/Lymphatic Hematologic/Lymphatic: Reports easy bruising; Denies easy bleeding EXAM Physical Exam Const Vital Signs: 01/23/24 10:13 01/23/24 10:41 01/23/24 11:51 Temperature 97.9 F Temperature Source Oral Pulse Rate 65 Pulse Rate [Lying] 58 L Pulse Rate [Sitting (for 1 minute prior to obtaining)] 65 Pulse Rate [Standing (for 1 minute prior to obtaining)] 65 Respiratory Rate 15 Respiratory Effort Normal Respiratory Pattern Normal Blood Pressure 162/87 H Blood Pressure [Lying] 135/63 H Blood Pressure [Sitting (for 1 minute prior to obtaining)] 143/75 H Blood Pressure [Standing (for 1 minute prior to obtaining)] 146/73 H Blood Pressure Mean 112 Blood Pressure Mean [Lying] 87 Blood Pressure Mean [Sitting (for 1 minute prior to obtaining)] 97 Blood Pressure Mean [Standing (for 1 minute prior to obtaining)] 97 Pulse Ox 100 Oxygen Delivery Method Room Air 01/23/24 12:26 Temperature Temperature Source Pulse Rate 60 Pulse Rate [Lying] Pulse Rate [Sitting (for 1 minute prior to obtaining)] Pulse Rate [Standing (for 1 minute prior to obtaining)] Respiratory Rate 14 Respiratory Effort Respiratory Pattern Blood Pressure 139/63 H Blood Pressure [Lying] Blood Pressure [Sitting (for 1 minute prior to obtaining)] Blood Pressure [Standing (for 1 minute prior to obtaining)] Blood Pressure Mean 88 Blood Pressure Mean [Lying] Blood Pressure Mean [Sitting (for 1 minute prior to obtaining)] Blood Pressure Mean [Standing (for 1 minute prior to obtaining)] Pulse Ox 96 Oxygen Delivery Method Positive well nourished and well developed General Appearance ED: well developed and NAD HEENT Reports moist mucous membranes Eyes PERRL and EOMs intact bilaterally Neck supple Chest Wall inspection of chest normal and palpation of chest normal Resp normal respiratory effort and clear to auscultation bilaterally Cardio regular rate and regular rhythm Heart Sounds: murmur GI normal to inspection, nondistended, normoactive bowel sounds and non-tender Palpation: soft; Negative for tender or guarding Extremity normal to inspection Neuro oriented x3 and no sensory deficits noted Sensorium / Orientation: alert Sensory Exam: No sensory level loss detected Motor Exam: strength 5/5 throughout; Negative for general weakness Psych mental status grossly normal Skin no rashes or lesions noted and no wounds MDM MDM MDM Narrative Medical decision making narrative: Patient is evaluated for generalized weakness. Is pretty nonspecific. Does report some ongoing nausea as well. Patient appears nontoxic no acute distress. Vital signs are stable in the emergency room. Physical exam is benign except for heart murmur. Patient does have a history of open heart surgery and thinks he has had this murmur in the past. I do not have any prior documentation in our system about it. Clinically does not appear to be fluid overloaded or in any type of decompensated heart failure. Differential includes deconditioning, depression, decompensated heart failure, infection, ROSA, symptomatic anemia, rhabdomyolysis, liver failure and urinary tract infection as well as dehydration Workup obtained including CBC, CMP, troponin, urinalysis, chest x-ray, EKG, CPK, orthostatic vital signs as well as ambulatory pulse ox. Workup is largely normal. Two-view chest x-ray does not show any acute process or signs of fluid overload. 2 view chest x-ray reviewed by myself as well as radiology. His high-sensitivity troponin is normal. His CBC is normal as well as his CMP. CPK is also normal. Urinalysis is not consistent with infection. Orthostatics are negative in the ER however patient is mildly dizzy with them. He ambulates without any hypoxia in the emergency room. On repeat evaluation he states he is actually feeling a little bit better. Did discuss with the patient that the cause of his symptoms or not clear but as he is not falling and does not have any acute abnormalities that I can find I do not think he requires admission. Patient is comfortable going home. Discussed that there could be component of stress and depression associated with the symptoms. Patient also tells me that he does have a little bit of dementia. Patient will be discharged home with his . Is given return precautions. Encouraged to follow-up with his primary care doctor. I did encourage him to follow-up with his PCP and discuss his heart murmur and possible need for repeat echocardiogram to pain on last time it was done to monitor that. Patient verbalized agreement or stands plan. Discharged home in stable condition Lab Data Attestation: I reviewed the patient's lab results. Labs: Laboratory Results - last 24 hr 01/23/24 01/23/24 09:53 10:31 WBC 9.9 RBC 5.13 Hgb 15.1 Hct 45.9 MCV 89.5 MCH 29.4 MCHC 32.9 RDW Std Deviation 45.9 H RDW Coeff of Nicky 13.9 Plt Count 216 MPV 11.1 Immature Gran % (Auto) 0.500 Neut % (Auto) 75.9 H Lymph % (Auto) 15.0 L [place] % (Auto) 6.4 Eos % (Auto) 1.6 Baso % (Auto) 0.6 Absolute Neuts (auto) 7.5 Absolute Lymphs (auto) 1.49 Nucleated RBC % 0 Sodium 139 Potassium 3.7 Chloride 105 Carbon Dioxide 26.0 Anion Gap 8 BUN 17 Creatinine 0.98 Estim Creat Clear Calc 54.89 Est GFR (MDRD) Af Amer 94 Est GFR (MDRD) Non-Af 78 BUN/Creatinine Ratio 17.3 Glucose 131 H Calcium 10.0 Total Bilirubin 1.10 H AST 18 ALT 20 Alkaline Phosphatase 65 Total Creatine Kinase 91 Troponin I High Sens 20 Total Protein 7.4 Albumin 4.4 Globulin 3.0 Albumin/Globulin Ratio 1.5 Urine Color Yellow Urine Clarity Clear Urine pH 7.0 Ur Specific [place] 1.005 Urine Protein Negative Urine Glucose (UA) Normal Urine Ketones 5 H Urine Occult Blood Negative Urine Nitrite Negative Urine Bilirubin Negative Urine Urobilinogen 1 H Ur Leukocyte Esterase Negative Urine RBC 0 SEEN Urine WBC 0 SEEN Ur Squamous Epith Cells 0 SEEN Urine Bacteria 0 SEEN Urine Mucus 0 SEEN Radiography Diagnostic Testing: Clinical Impression(s) from Imaging Studies Chest X-Ray 01/23/24 12:35 IMPRESSION: Stable examination. Linear atelectasis versus scarring at the left lung base. Electronically Signed: Mike Talbot MD at 12:54 EDT , Rhythm Strip Rhythm Strip: Sinus Rhythm Rate: 61 Ectopy: None EKG Initial EKG: Attestation: I personally reviewed and interpreted this EKG as follows: Interpretation: Sinus Rhythm Comments: Normal sinus rhythm rate 61 bpm Left axis deviation Left bundle branch block Compared to prior EKG on 12/15/2021 patient now has a left bundle branch block Discharge Plan Triage Chief Complaint: Weakness ED Provider: Rosalina Hampton Dx/Rx/DC Orders Clinical Impression: Generalized weakness, Heart murmur, Complete left bundle branch block Instructions: ED Weakness (Uncertain Cause) Prescriptions: No Action Aspirin 81 MG tablet 81 mg PO DAILY folic acid 1 MG tablet 1 mg PO DAILY@0800 Vitamin D3 5,000 UNITS tablet 5,000 units PO DAILY clonazepam 0.5 mg tablet 0.5 mg PO QHS PRN (Reason: panic attacks/ agoraphobi) tadalafil [Cialis] 5 mg tablet 5 mg PO DAILY PRN (Reason: sexual activity) losartan 50 MG tablet 50 mg PO DAILY hydrochlorothiazide 12.5 MG capsule 12.5 mg PO DAILY allopurinol 300 MG tablet 300 mg PO DAILY metoprolol succinate 100 MG tablet 100 mg PO DAILY 0RF clopidogrel 75 MG tablet 75 mg PO DAILY Qty: 30 0RF Primary Care Provider: Shelley Dodson Referrals: Shelley Dodson MD [Primary Care Provider] - Activity Restrictions/Additional Instructions: Your workup was largely normal today. The cause of your symptoms is not clear. You do have a heart murmur on exam. Please follow-up with your primary care doctor for this as you might need a repeat ultrasound of your heart (echocardiogram). Please return if you have a progression or worsening of your symptoms. Print Language: Setswana Disposition Disposition: Home, Self Care
[2024-01-23 11:47] LABS: Bacteria 0 SEEN /hpf (None Seen); Mucous, Urine 0 SEEN /hpf (<or=2+); Red Blood Cells-Urine 0 SEEN /hpf (0-5); Squamous Epithelial Cells - UA 0 SEEN /hpf (0-5); White Blood Cells 0 SEEN /hpf (0-5)
[2024-01-23 11:48] VITALS: O2SAT 96
[2024-01-23 11:49] LABS: Color, Urine Yellow (Yellow); Glucose, Dipstick Normal (Normal); Ketone-Dipstick 5 mg/dl (Negative); Leukocyte Esterase-Dipstick Negative /ul (Negative); Nitrite-Dipstick Negative (Negative); Occult Blood-Urine Negative /ul (Negative); Protein-Dipstick Negative (Negative); Specific Gravity, Urine 1.005 (1.002-1.030); Urine Bilirubin Dipstick Negative (Negative); Urine Clarity Clear (Clear); Urine Urobilinogen 1 mg/dl (Normal)
[2024-01-23 11:51] VITALS: BP 135/63; BP 143/75; BP 146/73; PULSE 58; PULSE 65
[2024-01-23 11:53] LABS: Absolute Lymphocyte Count 1.49 X10^3/uL (0.83-4.51); Absolute Neutrophil Count 7.5 X10^3/uL (2.0-7.7); Basophil# 0.06 X10^3/uL; Basophil% 0.6 % (0-1); Eosinophil# 0.16 X10^3/uL; Eosinophils% 1.6 % (0-5); Hematocrit 45.9 % (40-54); Hemoglobin 15.1 g/dL (13.0-16.5); Lymphocyte # 1.49 X10^3/ul (0.83-4.51); Mean Corp Hgb Conc 32.9 g/dL (32-36); Mean Corpuscular Hgb 29.4 pg (27.0-32.0); Mean Corpuscular Volume 89.5 fL (80-94); Mean Platelet Vol. 11.1 fl (6.2-12.0); Monocyte# 0.64 X10^3/uL; Monocyte% 6.4 % (0-10); NRBC Flagged by Analyzer 0 % (0-5); Neutrophil # 7.54 X10^3/uL (2.7-7.7); Neutrophil % 75.9 % (47-70); Platelet Count 216 K/mm3 (150-450); RBC Distribution Width CV 13.9 % (11.6-14.6); RBC Distribution Width SD 45.9 fl (35.1-43.9); Red Blood Count 5.13 M/mm3 (4.6-6.2); White Blood Count 9.9 K/mm3 (4.4-11.0)
[2024-01-23 12:07] LABS: ALB/GLOB Ratio 1.5 RATIO (0.9-2.4); AST(SGOT) 18 U/L (15-37); Alanine Aminotransfer ALT/SGPT 20 U/L (16-61); Albumin, Serum 4.4 g/dL (3.2-5.0); Alkaline Phosphatase 65 U/L (45-117); Anion Gap 8 (5-15); BUN 17 mg/dL (7-18); BUN/Creat Ratio 17.3 RATIO (10-20); CPK Total, Creatine Kinase 91 U/L (39-308); Chloride 105 mmol/L (98-107); Creatinine, Serum 0.98 mg/dL (0.70-1.30); EST Glomerular Filtration Rate 78 mL/min (>60); Est Glom Filt Rate - Afr Amer 94 mL/min (>60); Estimated Creatinine Clearance 54.89 ml/min; Glucose 131 mg/dL (74-106); Potassium 3.7 mmol/L (3.5-5.1); Protein, Total 7.4 g/dL (6.4-8.2); Sodium Level 139 mmol/L (136-145); Troponin-I HS 20 pg/mL (3.0-78.0)
[2024-01-23 12:26] VITALS: BP 139/63; PULSE 60; RESP 14; O2SAT 96
--- NOTE | 2024-01-23 12:35 | RAD_ITS ---
STUDY: X-RAY CHEST REASON FOR EXAM: Male, 79 years old. Weakness TECHNIQUE: Single AP portable view of the chest. COMPARISON: Comparison is made with prior study dated December 16, 2019. FINDINGS: EKG electrodes are seen. Hyperinflation. Stable minimal increased markings at the left lung base suggestive of either linear atelectasis and/or scarring. There is no demonstrated pleural abnormality. Sternal cerclage wires and vascular clips are present from a prior sternotomy and coronary artery bypass graft procedure (CABG). Normal mediastinum and marge. Normal visualized pulmonary arteries. There is atherosclerotic calcification of the aortic arch with tortuosity. There are degenerative changes of the visualized thoracic spine. Normal visualized ribs, clavicles, and shoulders. There is no demonstrated abnormality of the visualized soft tissue structures of the upper abdomen. RAD/Chest PA and Lateral IMPRESSION: Stable examination. Linear atelectasis versus scarring at the left lung base. Electronically Signed: Mike Talbot MD at 12:54 EDT ,
[2024-01-23 13:48] VITALS: BP 151/82; PULSE 60; RESP 16; TEMP 36.6; O2SAT 97
== END 2024-01-23 13:51 | disposition home or self-care (01) ==
PROVIDERS: Emergency Provider Emergency Medicine; PCP Internal Medicine; Visit Provider Emergency Medicine
DX: R53.1 Weakness (principal); R01.1 Cardiac murmur, unspecified; I44.7 Left bundle-branch block, unspecified; I10 Essential (primary) hypertension; E78.5 Hyperlipidemia, unspecified; G47.33 Obstructive sleep apnea (adult) (pediatric); I25.2 Old myocardial infarction; Z79.899 Other long term (current) drug therapy; Z86.73 Personal history of transient ischemic attack (TIA), and cerebral infarction without residual deficits; Z79.01 Long term (current) use of anticoagulants; Z95.1 Presence of aortocoronary bypass graft
CPT/HCPCS: 71046; 80053; 81001; 82550; 84484; 85025; 87631; 93005; 99283